=== PATIENT | male | born 1960 | race Caucasian/White ===

== ENCOUNTER → 2017-05-02 | Outpatient (REF) | payer OTHER ==
[~2017-05-02] MED LIST: CIPR500T3 PO; PERCOCET PO
[2017-05-02 13:36] LABS: CALCIUM LEVEL 9.1 MG/DL (8.5-10.1); CREATININE FOR GFR 1.35 MG/DL (0.70-1.30); GLOMERULAR FILTRATION RATE 57.8 (>56); MAGNESIUM LEVEL 2.3 MG/DL (1.8-2.4); PHOSPHORUS LEVEL 1.8 MG/DL (2.5-4.9); POTASSIUM SERUM 3.8 MEQ/L (3.5-5.1)
== END ==
LOC: M LABDRAW1 11:46
PROVIDERS: ATTEND Internal Medicine Cardiovascular Disease
DX: I10 Essential (primary) hypertension (principal)

== ENCOUNTER → 2017-06-03 | Outpatient (REF) | payer OTHER ==
[2017-06-03 16:32] LABS: ALBUMIN 3.5 GM/DL (3.2-5.2); ANION GAP 7 MEQ/L (8-16); BLOOD UREA NITROGEN 15 MG/DL (7-18); CALCIUM LEVEL 8.8 MG/DL (8.5-10.1); CARBON DIOXIDE LEVEL 24 MEQ/L (21-32); CHLORIDE LEVEL 105 MEQ/L (98-107); CREATININE FOR GFR 1.21 MG/DL (0.70-1.30); GLOMERULAR FILTRATION RATE > 60.0 (>56); GLUCOSE, FASTING 148 MG/DL (70-105); POTASSIUM SERUM 3.6 MEQ/L (3.5-5.1); SODIUM LEVEL 136 MEQ/L (136-145)
== END ==
LOC: M LABDRAW1 15:43
PROVIDERS: ATTEND Internal Medicine Cardiovascular Disease
DX: I10 Essential (primary) hypertension (principal)

== ENCOUNTER → 2017-12-20 | Outpatient (CLI) | payer OTHER | LOC: M WUC 14:25 | DX: M79.671 Pain in right foot (principal) | CPT/HCPCS: 73630 ==

== ENCOUNTER → 2018-03-31 | Outpatient (REF) | payer OTHER ==
[2018-03-31 13:22] LABS: ALBUMIN 3.9 GM/DL (3.2-5.2); ANION GAP 7 MEQ/L (8-16); BLOOD UREA NITROGEN 25 MG/DL (7-18); CARBON DIOXIDE LEVEL 28 MEQ/L (21-32); CHLORIDE LEVEL 106 MEQ/L (98-107); CREATININE FOR GFR 1.17 MG/DL (0.70-1.30); GLOMERULAR FILTRATION RATE > 60.0 (>56); GLUCOSE, FASTING 85 MG/DL (70-100); PHOSPHORUS LEVEL 2.5 MG/DL (2.5-4.9); POTASSIUM SERUM 3.7 MEQ/L (3.5-5.1); SODIUM LEVEL 141 MEQ/L (136-145); TROPONIN I < 0.02 NG/ML (< 0.10)
== END ==
LOC: M LABDRAW1 10:29
DX: R07.2 Precordial pain (principal)
CPT/HCPCS: 80069

== ENCOUNTER → 2018-10-01 | Outpatient (REF) | payer OTHER ==
[2018-10-01 12:40] LABS: HEMATOCRIT 44.4 % (42.0-52.0); HEMOGLOBIN 15.2 g/dl (13.5-17.5); MEAN CORPUSCULAR HEMOGLOBIN 31.9 pg (27.0-33.0); MEAN CORPUSCULAR HGB CONC 34.2 g/dl (32.0-36.5); MEAN CORPUSCULAR VOLUME 93.1 fl (80.0-96.0); PLATELET COUNT, AUTOMATED 203 10^3/uL (150-450); RED BLOOD COUNT 4.77 10^6/uL (4.30-6.10); RED CELL DISTRIBUTION WIDTH 12.1 % (11.5-14.5); WHITE BLOOD COUNT 3.5 10^3/uL (4.0-10.0)
[2018-10-01 12:45] LABS: ALBUMIN 3.8 GM/DL (3.2-5.2); ALBUMIN/GLOBULIN RATIO 1.15 (1.00-1.93); ALKALINE PHOSPHATASE 117 U/L (45-117); ALT/SGPT 34 U/L (12-78); ANION GAP 7 MEQ/L (8-16); AST/SGOT 14 U/L (7-37); BILIRUBIN,TOTAL 0.8 MG/DL (0.2-1.0); BLOOD UREA NITROGEN 26 MG/DL (7-18); CALCIUM LEVEL 8.8 MG/DL (8.5-10.1); CARBON DIOXIDE LEVEL 29 MEQ/L (21-32); CHLORIDE LEVEL 104 MEQ/L (98-107); CHOLESTEROL LEVEL 129 MG/DL (<200); CHOLESTEROL RISK RATIO 2.931 (<5); CREATININE FOR GFR 1.33 MG/DL (0.70-1.30); GLOMERULAR FILTRATION RATE 58.6 (>56); GLUCOSE, FASTING 101 MG/DL (70-100); HDL CHOLESTEROL 44 MG/DL (>40); LDL CHOLESTEROL 67 MG/DL (<100); NON-HDL-C 85 MG/DL; SODIUM LEVEL 140 MEQ/L (136-145); TOTAL PROTEIN 7.1 GM/DL (6.4-8.2); TRIGLYCERIDES LEVEL 89 MG/DL (<150)
== END ==
LOC: M LABDRAW1 11:50
DX: I10 Essential (primary) hypertension (principal)
CPT/HCPCS: 80053

== ENCOUNTER 2018-10-06 05:13 | Inpatient (IN) | payer OTHER ==
[2018-10-06 05:47] LABS: BASO % 0.2 % (0.0-1.0); EOS % 0.5 % (0.0-3.0); HEMATOCRIT 44.6 % (42.0-52.0); HEMOGLOBIN 15.3 g/dl (13.5-17.5); IMMATURE GRANULOCYTE % 0.3 % (0-3.0); LYMPH # 0.9 10^3/uL (1.5-4.5); LYMPH % 13.1 % (24.0-44.0); MEAN CORPUSCULAR HEMOGLOBIN 31.8 pg (27.0-33.0); MEAN CORPUSCULAR HGB CONC 34.3 g/dl (32.0-36.5); MEAN CORPUSCULAR VOLUME 92.7 fl (80.0-96.0); MONO # 0.3 10^3/uL (0.0-0.8); MONO % 4.9 % (0.0-5.0); NEUTROPHILS # 5.3 10^3/uL (1.8-7.7); PLATELET COUNT, AUTOMATED 195 10^3/uL (150-450); RED BLOOD COUNT 4.81 10^6/uL (4.30-6.10); RED CELL DISTRIBUTION WIDTH 12.1 % (11.5-14.5); WHITE BLOOD COUNT 6.5 10^3/uL (4.0-10.0)
[2018-10-06 06:08] LABS: ANION GAP 8 MEQ/L (8-16); BLOOD UREA NITROGEN 21 MG/DL (7-18); CALCIUM LEVEL 9.5 MG/DL (8.5-10.1); CARBON DIOXIDE LEVEL 29 MEQ/L (21-32); CHLORIDE LEVEL 102 MEQ/L (98-107); CPK CREATINE PHOSPHOKINASE 100 U/L (39-308); CREATININE FOR GFR 1.25 MG/DL (0.70-1.30); GLOMERULAR FILTRATION RATE > 60.0 (>56); GLUCOSE, FASTING 143 MG/DL (70-100); POTASSIUM SERUM 3.6 MEQ/L (3.5-5.1); SODIUM LEVEL 139 MEQ/L (136-145); TROPONIN I < 0.02 NG/ML (< 0.10)
[2018-10-06] MEDS ORDERED: ISOVUE-370 76% 100ML VIAL (Q9967) As Ordered (07:06)
[2018-10-06] MEDS: ONDANSETRON 4MG/2ML VIAL (J2405) IV (07:34)
[2018-10-06] MEDS: NS 1,000 ML IV ×2 (07:34→09:42)
[2018-10-06] MEDS: MORPHINE 2 MG/ML 1ML SYRINGE (J2270) IV ×4 (07:35→09:42)
[2018-10-06 07:36] LABS: ALBUMIN/GLOBULIN RATIO 1.18 (1.00-1.93); ALKALINE PHOSPHATASE 115 U/L (45-117); ALT/SGPT 30 U/L (12-78); AST/SGOT 17 U/L (7-37); BILIRUBIN,DIRECT 0.2 MG/DL (0.0-0.2); BILIRUBIN,TOTAL 0.5 MG/DL (0.2-1.0); LIPASE 128 U/L (73-393); TOTAL PROTEIN 7.4 GM/DL (6.4-8.2)
[2018-10-06 08:29] LABS: LACTIC ACID SEPSIS PROTOCOL 2.8 MMOL/L (0.4-2.0)
[2018-10-06 08:36] LABS: CPK CREATINE PHOSPHOKINASE 145 U/L (39-308); MB/CK RELATIVE INDEX 1.17 (< OR =4); TROPONIN I < 0.02 NG/ML (< 0.10)
[2018-10-06] MEDS: SENOKOT S TAB PO ×2 (09:00→21:05)
[2018-10-06] MEDS: GI COCKTAIL 50ML BTL(HYOSCYAMINE/MAALOX/LIDOCAINE VISCOUS)(1:3:1) PO (09:14)
[2018-10-06] MEDS ORDERED: NORCO, ANEXSIA 5/325MG TABLET (HYDROcodone/ACETAMINOPHEN) PO (11:15)
[2018-10-06] MEDS ORDERED: ONDANSETRON 4MG/2ML VIAL (J2405) IV (11:15)
[2018-10-06] MEDS: KETOROLAC 30 MG/ML VIAL (J1885) IV (11:24)
[2018-10-06 12:09] LABS: BASO % 0.1 % (0.0-1.0); HEMATOCRIT 40.6 % (42.0-52.0); HEMOGLOBIN 14.2 g/dl (13.5-17.5); IMMATURE GRANULOCYTE % 0.3 % (0-3.0); LYMPH # 0.5 10^3/uL (1.5-4.5); MEAN CORPUSCULAR HEMOGLOBIN 31.8 pg (27.0-33.0); MEAN CORPUSCULAR VOLUME 90.8 fl (80.0-96.0); MONO # 0.5 10^3/uL (0.0-0.8); MONO % 5.4 % (0.0-5.0); NEUTROPHILS # 8.3 10^3/uL (1.8-7.7); NEUTROPHILS % 89.2 % (36.0-66.0); PLATELET COUNT, AUTOMATED 181 10^3/uL (150-450); RED BLOOD COUNT 4.47 10^6/uL (4.30-6.10); RED CELL DISTRIBUTION WIDTH 12.1 % (11.5-14.5); WHITE BLOOD COUNT 9.3 10^3/uL (4.0-10.0)
[2018-10-06 12:43] LABS: ALBUMIN 3.4 GM/DL (3.2-5.2); ALKALINE PHOSPHATASE 93 U/L (45-117); ALT/SGPT 24 U/L (12-78); ANION GAP 7 MEQ/L (8-16); AST/SGOT 16 U/L (7-37); BILIRUBIN,DIRECT 0.2 MG/DL (0.0-0.2); BILIRUBIN,TOTAL 0.6 MG/DL (0.2-1.0); BLOOD UREA NITROGEN 15 MG/DL (7-18); CALCIUM LEVEL 8.6 MG/DL (8.5-10.1); CARBON DIOXIDE LEVEL 26 MEQ/L (21-32); CHLORIDE LEVEL 103 MEQ/L (98-107); CREATININE FOR GFR 0.95 MG/DL (0.70-1.30); GLOMERULAR FILTRATION RATE > 60.0 (>56); GLUCOSE, FASTING 130 MG/DL (70-100); LIPASE 114 U/L (73-393); POTASSIUM SERUM 3.8 MEQ/L (3.5-5.1); SODIUM LEVEL 136 MEQ/L (136-145); TOTAL PROTEIN 6.5 GM/DL (6.4-8.2)
[2018-10-06] MEDS: PANTOPRAZOLE 40MG INJ (PROTONIX) (C9113) IV (13:07)
[2018-10-06] MEDS: ASPIRIN 81 MG ENTERIC TAB PO (13:07)
[2018-10-06] MEDS: LR 1,000 ML IV ×2 (13:08→23:30)
[2018-10-06] MEDS: AMPICILLIN SOD/SULBACTAM SOD 3 GM in D5W MINI-BAG PLUS 100 ML IV ×2 (13:09→18:22)
[2018-10-06] MEDS: ATORVASTATIN 20 MG TAB PO (21:04)
[2018-10-06] MEDS: ENOXAPARIN 40 MG/0.4 ML SYRINGE (J1650) SC (21:04)
[2018-10-06] MEDS: ACETAMINOPHEN TAB 650MG DOSE (2X325MG) PO (21:05)
[2018-10-06] MEDS: NORCO, ANEXSIA 5/325MG TABLET (HYDROcodone/ACETAMINOPHEN) PO (23:29)
[2018-10-07] MEDS: AMPICILLIN SOD/SULBACTAM SOD 3 GM in D5W MINI-BAG PLUS 100 ML IV ×4 (00:28→19:19)
[2018-10-07] MEDS: LR 1,000 ML IV ×3 (03:04→17:29)
[2018-10-07 06:22] LABS: BASO % 0.2 % (0.0-1.0); EOS # 0.1 10^3/uL (0.0-0.50); EOS % 0.8 % (0.0-3.0); HEMATOCRIT 37.5 % (42.0-52.0); HEMOGLOBIN 12.9 g/dl (13.5-17.5); IMMATURE GRANULOCYTE % 0.4 % (0-3.0); LYMPH # 0.9 10^3/uL (1.5-4.5); LYMPH % 9.5 % (24.0-44.0); MEAN CORPUSCULAR HEMOGLOBIN 31.9 pg (27.0-33.0); MEAN CORPUSCULAR HGB CONC 34.4 g/dl (32.0-36.5); MEAN CORPUSCULAR VOLUME 92.8 fl (80.0-96.0); MONO # 0.8 10^3/uL (0.0-0.8); MONO % 9.1 % (0.0-5.0); NEUTROPHILS # 7.3 10^3/uL (1.8-7.7); PLATELET COUNT, AUTOMATED 149 10^3/uL (150-450); RED BLOOD COUNT 4.04 10^6/uL (4.30-6.10); RED CELL DISTRIBUTION WIDTH 12.5 % (11.5-14.5); WHITE BLOOD COUNT 9.1 10^3/uL (4.0-10.0)
[2018-10-07 06:41] LABS: ALBUMIN 2.7 GM/DL (3.2-5.2); ALBUMIN/GLOBULIN RATIO 0.93 (1.00-1.93); ALKALINE PHOSPHATASE 74 U/L (45-117); ALT/SGPT 21 U/L (12-78); ANION GAP 6 MEQ/L (8-16); AST/SGOT 11 U/L (7-37); BILIRUBIN,TOTAL 0.9 MG/DL (0.2-1.0); BLOOD UREA NITROGEN 14 MG/DL (7-18); CARBON DIOXIDE LEVEL 29 MEQ/L (21-32); CHLORIDE LEVEL 106 MEQ/L (98-107); CREATININE FOR GFR 1.14 MG/DL (0.70-1.30); GLOMERULAR FILTRATION RATE > 60.0 (>56); GLUCOSE, FASTING 106 MG/DL (70-100); LIPASE 88 U/L (73-393); POTASSIUM SERUM 3.6 MEQ/L (3.5-5.1); SODIUM LEVEL 141 MEQ/L (136-145); TOTAL PROTEIN 5.6 GM/DL (6.4-8.2)
[2018-10-07] MEDS: SENOKOT S TAB PO ×2 (09:00→20:30)
[2018-10-07] MEDS: ASPIRIN 81 MG ENTERIC TAB PO (09:16)
[2018-10-07] MEDS: PANTOPRAZOLE 40MG INJ (PROTONIX) (C9113) IV (09:16)
[2018-10-07] MEDS: SPIRONOLACTONE 12.5MG PER 1/2 TABLET PO (11:22)
[2018-10-07] MEDS: ACETAMINOPHEN TAB 650MG DOSE (2X325MG) PO (14:30)
[2018-10-07] MEDS: ENOXAPARIN 40 MG/0.4 ML SYRINGE (J1650) SC (20:30)
[2018-10-07] MEDS: ATORVASTATIN 20 MG TAB PO (20:31)
[2018-10-08] MEDS: AMPICILLIN SOD/SULBACTAM SOD 3 GM in D5W MINI-BAG PLUS 100 ML IV ×4 (00:13→20:05)
[2018-10-08] MEDS: LR 1,000 ML IV ×5 (02:32→23:45)
[2018-10-08 06:35] LABS: BASO % 0.1 % (0.0-1.0); EOS # 0.1 10^3/uL (0.0-0.50); EOS % 0.9 % (0.0-3.0); HEMATOCRIT 35.2 % (42.0-52.0); IMMATURE GRANULOCYTE % 0.5 % (0-3.0); LYMPH % 10.9 % (24.0-44.0); MEAN CORPUSCULAR HEMOGLOBIN 31.4 pg (27.0-33.0); MEAN CORPUSCULAR HGB CONC 34.1 g/dl (32.0-36.5); MEAN CORPUSCULAR VOLUME 92.1 fl (80.0-96.0); MONO # 0.8 10^3/uL (0.0-0.8); NEUTROPHILS # 6.9 10^3/uL (1.8-7.7); NEUTROPHILS % 78.6 % (36.0-66.0); PLATELET COUNT, AUTOMATED 143 10^3/uL (150-450); RED BLOOD COUNT 3.82 10^6/uL (4.30-6.10); RED CELL DISTRIBUTION WIDTH 12.3 % (11.5-14.5); WHITE BLOOD COUNT 8.7 10^3/uL (4.0-10.0)
[2018-10-08 07:08] LABS: ALBUMIN 2.6 GM/DL (3.2-5.2); ALBUMIN/GLOBULIN RATIO 0.84 (1.00-1.93); ALKALINE PHOSPHATASE 68 U/L (45-117); ALT/SGPT 14 U/L (12-78); ANION GAP 8 MEQ/L (8-16); AST/SGOT 11 U/L (7-37); BILIRUBIN,TOTAL 0.9 MG/DL (0.2-1.0); BLOOD UREA NITROGEN 9 MG/DL (7-18); CARBON DIOXIDE LEVEL 27 MEQ/L (21-32); CHLORIDE LEVEL 107 MEQ/L (98-107); CREATININE FOR GFR 0.95 MG/DL (0.70-1.30); GLOMERULAR FILTRATION RATE > 60.0 (>56); GLUCOSE, FASTING 92 MG/DL (70-100); POTASSIUM SERUM 3.3 MEQ/L (3.5-5.1); SODIUM LEVEL 142 MEQ/L (136-145); TOTAL PROTEIN 5.7 GM/DL (6.4-8.2)
[2018-10-08] MEDS: ASPIRIN 81 MG ENTERIC TAB PO (08:07)
[2018-10-08] MEDS: CHLORTHALIDONE 12.5MG PER 1/2 TABLET PO (08:07)
[2018-10-08] MEDS: SENOKOT S TAB PO ×2 (09:00→21:54)
[2018-10-08] MEDS: SPIRONOLACTONE 12.5MG PER 1/2 TABLET PO (09:00)
[2018-10-08] MEDS: PANTOPRAZOLE 40MG INJ (PROTONIX) (C9113) IV (10:29)
[2018-10-08] MEDS ORDERED: ROCURONIUM BROMIDE 50 MG/5 ML VIAL As Ordered ×2 (16:48→18:19)
[2018-10-08] MEDS ORDERED: PROPOFOL 200 MG/20 ML VIAL As Ordered (16:48)
[2018-10-08] MEDS ORDERED: fentaNYL 250 MCG/5 ML INJECTION (J3010) As Ordered (16:48)
[2018-10-08] MEDS ORDERED: MIDAZOLAM INJ 2 MG/2 ML VIAL (J2250) As Ordered (16:48)
[2018-10-08] MEDS ORDERED: dexameTHASONE 4 MG/ML 1ML VIAL (J1100) As Ordered (16:48)
[2018-10-08] MEDS ORDERED: LIDOCAINE 2% INJ 100 MG/5 ML SDV (FOR ANES.) As Ordered (16:48)
[2018-10-08] MEDS: LIDOCAINE 1% SDV INJ 30 ML VIAL As Ordered (16:59)
[2018-10-08] MEDS: BUPIVACAINE HCL 0.25% 30 ML VIAL As Ordered ×2 (16:59→20:31)
[2018-10-08] MEDS ORDERED: ONDANSETRON 4MG/2ML VIAL (J2405) As Ordered (17:36)
[2018-10-08] MEDS ORDERED: KETOROLAC 60 MG/2 ML VIAL (J1885) As Ordered (17:36)
[2018-10-08] MEDS ORDERED: DESFLURANE 240 ML INHALANT As Ordered (17:58)
[2018-10-08] MEDS: CONRAY-60 60% 50ML VIAL (Q9961) As Ordered (18:52)
[2018-10-08] MEDS: GLUCAGON FOR INJ 1 MG VIAL (J1610) As Ordered ×2 (19:05→20:11)
[2018-10-08] MEDS: UNASYN 1.5 GM VIAL As Ordered (20:04)
[2018-10-08] MEDS ORDERED: SUGAMMADEX SODIUM 500 MG/5 ML VIAL (BRIDION) As Ordered (20:22)
[2018-10-08] MEDS: BUPIVACAINE LIPOSOME/PF 1.3% 20ML VIAL (13.3MG/ML)(EXPAREL)(C9290 PER1MG) As Ordered (20:40)
[2018-10-08] MEDS ORDERED: NORCO, ANEXSIA 5/325MG TABLET (HYDROcodone/ACETAMINOPHEN) PO ×2 (21:15→23:45)
[2018-10-08] MEDS ORDERED: ONDANSETRON 4MG/2ML VIAL (J2405) IV ×2 (21:15→23:45)
[2018-10-08] MEDS ORDERED: fentaNYL 100 MCG/2 ML INJECTION (J3010) IV ×2 (21:15→23:45)
[2018-10-08] MEDS: ENOXAPARIN 40 MG/0.4 ML SYRINGE (J1650) SC (21:54)
[2018-10-08] MEDS: ATORVASTATIN 20 MG TAB PO (21:54)
[2018-10-09] MEDS: AMPICILLIN SOD/SULBACTAM SOD 3 GM in D5W MINI-BAG PLUS 100 ML IV ×4 (01:09→18:32)
[2018-10-09 06:00] LABS: BASO % 0.1 % (0.0-1.0); HEMATOCRIT 32.4 % (42.0-52.0); HEMOGLOBIN 11.1 g/dl (13.5-17.5); IMMATURE GRANULOCYTE % 0.6 % (0-3.0); LYMPH # 0.5 10^3/uL (1.5-4.5); LYMPH % 7.1 % (24.0-44.0); MEAN CORPUSCULAR HEMOGLOBIN 31.9 pg (27.0-33.0); MEAN CORPUSCULAR HGB CONC 34.3 g/dl (32.0-36.5); MEAN CORPUSCULAR VOLUME 93.1 fl (80.0-96.0); MONO # 0.5 10^3/uL (0.0-0.8); MONO % 7.8 % (0.0-5.0); NEUTROPHILS # 5.8 10^3/uL (1.8-7.7); NEUTROPHILS % 84.4 % (36.0-66.0); PLATELET COUNT, AUTOMATED 141 10^3/uL (150-450); RED BLOOD COUNT 3.48 10^6/uL (4.30-6.10); RED CELL DISTRIBUTION WIDTH 12.2 % (11.5-14.5); WHITE BLOOD COUNT 6.9 10^3/uL (4.0-10.0)
[2018-10-09 06:21] LABS: ALBUMIN 2.3 GM/DL (3.2-5.2); ALKALINE PHOSPHATASE 63 U/L (45-117); ALT/SGPT 59 U/L (12-78); ANION GAP 7 MEQ/L (8-16); AST/SGOT 50 U/L (7-37); BILIRUBIN,TOTAL 0.6 MG/DL (0.2-1.0); CARBON DIOXIDE LEVEL 28 MEQ/L (21-32); CHLORIDE LEVEL 106 MEQ/L (98-107); CREATININE FOR GFR 0.96 MG/DL (0.70-1.30); GLOMERULAR FILTRATION RATE > 60.0 (>56); GLUCOSE, FASTING 115 MG/DL (70-100); POTASSIUM SERUM 3.7 MEQ/L (3.5-5.1); SODIUM LEVEL 141 MEQ/L (136-145); TOTAL PROTEIN 5.6 GM/DL (6.4-8.2)
[2018-10-09 06:22] LABS: BLOOD UREA NITROGEN 15 MG/DL (7-18)
[2018-10-09] MEDS: LR 1,000 ML IV ×2 (06:31→14:39)
[2018-10-09] MEDS: PANTOPRAZOLE 40MG INJ (PROTONIX) (C9113) IV (08:04)
[2018-10-09] MEDS: SPIRONOLACTONE 12.5MG PER 1/2 TABLET PO (08:44)
[2018-10-09] MEDS: SENOKOT S TAB PO ×2 (08:45→21:00)
[2018-10-09] MEDS: ASPIRIN 81 MG ENTERIC TAB PO (08:45)
[2018-10-09] MEDS: KETOROLAC 30 MG/ML VIAL (J1885) IV (13:37)
[2018-10-09] MEDS: ENOXAPARIN 40 MG/0.4 ML SYRINGE (J1650) SC (21:02)
[2018-10-09] MEDS: ATORVASTATIN 20 MG TAB PO (21:02)
[2018-10-10] MEDS: AMPICILLIN SOD/SULBACTAM SOD 3 GM in D5W MINI-BAG PLUS 100 ML IV ×4 (01:06→18:13)
[2018-10-10 07:37] LABS: BASO % 0.3 % (0.0-1.0); EOS # 0.1 10^3/uL (0.0-0.50); EOS % 1.9 % (0.0-3.0); HEMATOCRIT 36.4 % (42.0-52.0); HEMOGLOBIN 12.4 g/dl (13.5-17.5); IMMATURE GRANULOCYTE % 0.3 % (0-3.0); LYMPH # 1.5 10^3/uL (1.5-4.5); MEAN CORPUSCULAR HEMOGLOBIN 31.9 pg (27.0-33.0); MEAN CORPUSCULAR HGB CONC 34.1 g/dl (32.0-36.5); MEAN CORPUSCULAR VOLUME 93.6 fl (80.0-96.0); MONO # 0.5 10^3/uL (0.0-0.8); NEUTROPHILS # 3.6 10^3/uL (1.8-7.7); NEUTROPHILS % 62.5 % (36.0-66.0); PLATELET COUNT, AUTOMATED 170 10^3/uL (150-450); RED BLOOD COUNT 3.89 10^6/uL (4.30-6.10); RED CELL DISTRIBUTION WIDTH 12.1 % (11.5-14.5); WHITE BLOOD COUNT 5.8 10^3/uL (4.0-10.0)
[2018-10-10 08:30] LABS: ALBUMIN 2.5 GM/DL (3.2-5.2); ALBUMIN/GLOBULIN RATIO 0.68 (1.00-1.93); ALKALINE PHOSPHATASE 72 U/L (45-117); ALT/SGPT 59 U/L (12-78); ANION GAP 10 MEQ/L (8-16); AST/SGOT 40 U/L (7-37); BILIRUBIN,TOTAL 0.3 MG/DL (0.2-1.0); BLOOD UREA NITROGEN 23 MG/DL (7-18); CALCIUM LEVEL 8.3 MG/DL (8.5-10.1); CARBON DIOXIDE LEVEL 28 MEQ/L (21-32); CHLORIDE LEVEL 104 MEQ/L (98-107); GLOMERULAR FILTRATION RATE > 60.0 (>56); GLUCOSE, FASTING 109 MG/DL (70-100); POTASSIUM SERUM 3.7 MEQ/L (3.5-5.1); SODIUM LEVEL 142 MEQ/L (136-145); TOTAL PROTEIN 6.2 GM/DL (6.4-8.2)
[2018-10-10] MEDS: PANTOPRAZOLE 40MG INJ (PROTONIX) (C9113) IV (09:12)
[2018-10-10] MEDS: SPIRONOLACTONE 12.5MG PER 1/2 TABLET PO (09:13)
[2018-10-10] MEDS: SENOKOT S TAB PO ×2 (09:13→20:15)
[2018-10-10] MEDS: MOM 30ML SUSPENSION UDC PO (09:13)
[2018-10-10] MEDS: ASPIRIN 81 MG ENTERIC TAB PO (09:13)
[2018-10-10] MEDS: CHLORTHALIDONE 12.5MG PER 1/2 TABLET PO (09:13)
[2018-10-10] MEDS: ATORVASTATIN 20 MG TAB PO (20:15)
[2018-10-10] MEDS: ENOXAPARIN 40 MG/0.4 ML SYRINGE (J1650) SC (20:15)
[2018-10-11] MEDS: AMPICILLIN SOD/SULBACTAM SOD 3 GM in D5W MINI-BAG PLUS 100 ML IV ×2 (00:31→07:35)
[2018-10-11] MEDS: SPIRONOLACTONE 12.5MG PER 1/2 TABLET PO (07:30)
[2018-10-11] MEDS: SENOKOT S TAB PO ×2 (09:00→09:09)
[2018-10-11] MEDS: ASPIRIN 81 MG ENTERIC TAB PO (09:09)
[2018-10-11] MEDS: PANTOPRAZOLE 40MG INJ (PROTONIX) (C9113) IV (09:09)
== END 2018-10-11 11:13 | disposition home or self-care (01) | DRG 262 ==
LOC: M ED 05:13 → M ED INP 11:04 → M MSPAV 12:55
PROC: 0FT40ZZ Resection of Gallbladder, Open Approach (ICD-10-PCS; principal; 2018-10-08 15:30)
DX: K81.0 Acute cholecystitis (principal); I36.0 Nonrheumatic tricuspid (valve) stenosis; I10 Essential (primary) hypertension; Z53.31 Laparoscopic surgical procedure converted to open procedure; K21.9 Gastro-esophageal reflux disease without esophagitis; Z79.82 Long term (current) use of aspirin; Z79.899 Other long term (current) drug therapy; E78.5 Hyperlipidemia, unspecified; M19.90 Unspecified osteoarthritis, unspecified site

== ENCOUNTER → 2019-07-28 | Outpatient (CLI) | payer OTHER ==
[~2019-07-28] MED LIST changes: +ASPI81TA85 PO; +ATOR40TA75 PO; +CHLO125TA; +CHLO125TA PO; +PANT40TA3 PO; +SPIR-10 PO
[2019-07-28 10:43] LABS: HEMATOCRIT 42.3 % (42.0-52.0); HEMOGLOBIN 14.7 g/dl (13.5-17.5); MEAN CORPUSCULAR HEMOGLOBIN 31.9 pg (27.0-33.0); MEAN CORPUSCULAR HGB CONC 34.8 g/dl (32.0-36.5); MEAN CORPUSCULAR VOLUME 91.8 fl (80.0-96.0); PLATELET COUNT, AUTOMATED 157 10^3/uL (150-450); RED BLOOD COUNT 4.61 10^6/uL (4.30-6.10); WHITE BLOOD COUNT 4.4 10^3/uL (4.0-10.0)
[2019-07-28 11:00] LABS: INR 0.97; PROTHROMBIN TIME 12.6 SECONDS (11.8-14.0)
[2019-07-28 11:05] LABS: ALBUMIN 3.7 GM/DL (3.2-5.2); ALT/SGPT 24 U/L (12-78); BILIRUBIN,TOTAL 0.5 MG/DL (0.2-1.0); BLOOD UREA NITROGEN 21 MG/DL (7-18); CALCIUM LEVEL 9.1 MG/DL (8.8-10.2); CARBON DIOXIDE LEVEL 27 MEQ/L (21-32); CHLORIDE LEVEL 106 MEQ/L (98-107); CREATININE FOR GFR 1.08 MG/DL (0.70-1.30); GLOMERULAR FILTRATION RATE > 60.0 (>49); GLUCOSE, FASTING 91 MG/DL (70-100); POTASSIUM SERUM 3.9 MEQ/L (3.5-5.1); SODIUM LEVEL 141 MEQ/L (136-145); TOTAL PROTEIN 6.6 GM/DL (6.4-8.2)
[2019-07-28 11:26] LABS: ERYTHROCYTE SEDIMENTATION RATE 18 mm/hr (0-20)
--- NOTE | 2019-07-29 02:57 | REP ---
Clinical: Preoperative assessment . Comparison: 10/06/2018 . Technique: PA and lateral. Findings: The mediastinum and cardiac silhouette are normal. The lung kelly are clear and without acute consolidation, effusion, or pneumothorax. The skeletal structures are intact and normal. Impression: 1. No acute cardiopulmonary process. Electronically Signed by Michael Sawyer MD 07/29/2019 02:49 A
--- NOTE | 2019-07-29 10:14 | ECGEPIP ---
[facility] Test Date: 2019-07-28 Pat Name: CARMEN ROCA Department: Room: - Gender: Male Emergency Room Tech: ROBERT : 1960 Requested By: Jeremiah Hernandes Order Number: [id number] Reading MD: Jeremiah Nelson Measurements Intervals [place] Rate: 52 P: 28 OR: 152 QRS: -20 QRSD: 93 T: 12 QT: 397 QTc: 369 Interpretive Statements SINUS BRADYCARDIA Normalized QTc from tracing done 10-06-18 Electronically Signed on 07-29-2019 10:13:55 EDT by Jeremiah Nelson
== END ==
LOC: M LAB 09:47
PROVIDERS: ATTEND Orthopaedic Surgery
DX: Z01.818 Encounter for other preprocedural examination (principal); M16.12 Unilateral primary osteoarthritis, left hip; R00.1 Bradycardia, unspecified

== ENCOUNTER 2019-08-19 05:47 | Inpatient (IN) | payer OTHER ==
[2019-08-19] VITALS (8 sets, daily range): BP systolic 104–136; BP diastolic 59–78
[~2019-08-19] VITALS: Ht 162.6 cm; Wt 81.1 kg
[2019-08-19] MEDS ORDERED: ceFAZolin SOD 2 GM in IV 1 EA IV ONE (06:00)
[2019-08-19] MEDS ORDERED: LR 1,000 ML IV ONE (06:00)
[2019-08-19] MEDS ORDERED: LIDOCAINE 1% MDV 20ML VIAL SQ PRN (06:00)
--- NOTE | 2019-08-19 07:47 | IPN ---
DATE: 08/19/2019 Patient seen and examined. He wishes to go ahead with a left total hip arthroplasty. We are planning on using a [place] stem. I talked to him about the weightbearing options and decided that we would go ahead with likely a ceramic ball on poly. I think that is a good weightbearing choice for somebody of his age. Other weightbearing surfaces discussed. He understands the nature of procedure, the risks of bleeding, infection, damage to nerves, vessels, persistent pain, wear loosening, dislocation, leg length inequality, blood clots, medical problems. Preop clearance was obtained. Will plan on proceeding with a left total hip arthroplasty.
[2019-08-19] MEDS ORDERED: LIDOCAINE 2% INJ 100 MG/5 ML SDV (FOR ANES.) As Ordered ONE (08:09)
[2019-08-19] MEDS ORDERED: fentaNYL 100 MCG/2 ML INJECTION (J3010) As Ordered ONE (08:09)
[2019-08-19] MEDS ORDERED: PROPOFOL 500 MG/50 ML VIAL As Ordered ONE (08:09)
[2019-08-19] MEDS ORDERED: MIDAZOLAM INJ 2 MG/2 ML VIAL (J2250) As Ordered ONE (08:09)
[2019-08-19] MEDS ORDERED: ONDANSETRON 4MG/2ML VIAL (J2405) As Ordered ONE (08:09)
[2019-08-19] MEDS ORDERED: ePHEDrine SULFATE 25 MG/5 ML(5MG/ML) SYRINGE As Ordered ONE (08:09)
[2019-08-19] MEDS ORDERED: METOCLOPRAMIDE INJ 10MG/2ML VIAL (J2765) IV PRN (09:00)
[2019-08-19] MEDS ORDERED: ACETAMINOPHEN TAB 650MG DOSE (2X325MG) PO PRN (09:00)
[2019-08-19] MEDS ORDERED: ONDANSETRON 4MG/2ML VIAL (J2405) IV PRN ×2 (09:00)
[2019-08-19] MEDS ORDERED: PERCOCET 5MG/325MG TAB PO PRN ×2 (09:00)
[2019-08-19] MEDS ORDERED: FLEET ENEMA PR PRN (09:00)
[2019-08-19] MEDS ORDERED: MEPERIDINE INJ 25 MG/ML VIAL (J2175) IV PRN (09:00)
[2019-08-19] MEDS ORDERED: MORPHINE 4 MG/ML 1ML VIAL/SYRINGE (J2270) IV PRN (09:00)
[2019-08-19] MEDS ORDERED: LR 1,000 ML IV SCH (09:30)
[2019-08-19] MEDS ORDERED: fentaNYL 100 MCG/2 ML INJECTION (J3010) IV PRN (09:30)
[2019-08-19] MEDS ORDERED: TRANEXAMIC ACID 100 MG/ML 10ML VIAL As Ordered ONE (09:35)
[2019-08-19] MEDS ORDERED: EPINEPHrine INJ 1 MG/ML 1ML AMP As Ordered ONE (09:35)
[2019-08-19] MEDS ORDERED: ceFAZolin 1GM INJ (J0690 PER 500MG) As Ordered ONE (09:35)
[2019-08-19] MEDS ORDERED: BUPIVACAINE LIPOSOME/PF 1.3% 20ML VIAL (13.3MG/ML)(EXPAREL)(C9290 PER1MG) As Ordered ONE (09:35)
--- NOTE | 2019-08-19 10:30 | REP ---
LEFT HIP, TWO VIEWS: Two views of the left hip performed. Total hip prosthesis appears to be in good position. Structures are well aligned. Metallic skin alex are seen laterally. Electronically Signed by Arnulfo Mitchell MD 08/19/2019 06:22 P
[2019-08-19] MEDS: LR 1,000 ML IV SCH ×2 (13:03→20:28)
[2019-08-19] MEDS: MORPHINE 4 MG/ML 1ML VIAL/SYRINGE (J2270) IV PRN ×2 (13:03→16:19)
[2019-08-19] MEDS: PERCOCET 5MG/325MG TAB PO PRN ×2 (13:45→20:28)
--- NOTE | 2019-08-19 14:45 | RO ---
DATE OF PROCEDURE: 08/19/2019 PREOPERATIVE DIAGNOSIS: Left hip osteoarthritis. POSTOPERATIVE DIAGNOSIS: Left hip osteoarthritis, severe. PROCEDURE: Left total hip arthroplasty using a [place] 7 high offset, +8.5 neck, 36 ball, 56 acetabular component with a ceramic head polyethylene liner. SURGEON: Dr. Jeremiah Hernandes. CLEANING MATRON: Mr. Zack Lockhart PA-C ANESTHESIA: Spinal ESTIMATED BLOOD LOSS: 200 mL. COMPLICATIONS: None. INDICATIONS: This is a 59-year-old gentleman who has had gradually worsening left hip pain. He has severe arthritis and large osteophytes noted on the x-ray. He wished to go ahead with surgical treatment having failed conservative management. PROCEDURE: The patient was taken to operating room and placed in the right lateral decubitus position on the [place] positioner. All areas were padded appropriately. The left hip was prepped and draped in usual sterile fashion. I then performed a time-out and created a longitudinal incision over the lateral aspect the hip. Sharp dissection was carried down to the subcutaneous tissue. Incised the fascia esteban and exposed the abductors, which were divided about 40% of which off the anterior aspect of the femur exposing the femoral neck. It was immediately evident the large osteophytes and even some loose pieces anterior to the hip from osteophytes. Eventually, I able to dislocate the hip and then I removed some of the osteophytes with a rongeur for exposure. I used a canal initiating reamer and the canal finding reamer, and lateralizing reamer and then sequentially reamed up to a size 7, which had good purchase in good fit and fill. Neck cut was made about three-quarters of a fingerbreadth up from the lesser trochanter and then we directed our attention to the acetabulum. I then sequentially reamed up to a size 55, which had good bleeding bone in good concentric reaming. I was able to medialized it some in order to get good concentric reaming. He had very large anterior osteophytes which made it very difficult to determine the acetabular component position. I then impacted in the 56 cup and I used the external alignment guide and the appropriate amount of horizontal tilt and anteversion judged based on the alignment guide. This was impacted in place. It was well seated. I then removed osteophytes with an osteotome and mallet and rongeur down to the level of the acetabular component. I then placed the polyethylene, impacted it in place, 36 diameter head. Directed our attention back to the femur. I sequentially broached up to a size 7, which had a good fit and fill. It was very slightly proud on the cut but was very pleased with the way it filled the canal and then did trial reduction with the various different neck lengths and a high offset because I did medialized the acetabulum some and was very pleased with the +8.5 neck length. He had minimal shuck in full extension. I was able to externally rotate him at least 90 degrees in full extension without subluxing the hip. Flexion was beyond 90 degrees with good internal rotation. Again no instability. I then removed the trial components. I had irrigated prior to placement of the acetabulum. I irrigated now prior to placement of the femoral component. Impacted in the size 7 high offset and placed the actual ceramic +8.5, 36 ball. Made sure this was well seated. Reduced the hip with the assistant mechanic's help. Put the hip through range of motion and was very pleased with this. I placed Exparel the deep tissues and TXA in the deep tissues. Repaired the minimus with #1-0 Vicryl suture after final deep irrigation. I then repaired the abductor with #1-0 Vicryl suture. Excellent closure was noted. I irrigated again, closed this fashion with #1=- Vicryl suture running Stratafix, subcu with #2-0 Vicryl and skin with alex. Sterile dressing was applied. The patient was taken to recovery room in stable condition. There were no known complications. The plan will be routine postop. The assistant mechanic was instrumental holding retractors and assisting in reducing and dislocating the hip and assisting in wound closure.
[2019-08-19] MEDS: ceFAZolin SOD 2 GM in IV 1 EA IV SCH ×2 (16:18→23:37)
--- NOTE | 2019-08-19 18:56 | CR.PDOC ---
General Date of Consultation: Aug 19, 2019 Attending Physician: JACOB MARS DO Consultation REASON FOR CONSULTATION/CHIEF COMPLAINT: Physical evaluation and management HISTORY OF PRESENT ILLNESS: Patient is 59 years old male with past medical history of hypertension, osteoarthritis, hyperlipidemia presented hospital for planned left hip replacement due to arthritis. When I saw the patient he was after surgery, he complains of left hip pain alleviated by pain medications. Patient denies fever, chills, nausea, vomiting, diarrhea or dysuria ALLERGIES: Please see below. HOME MEDICATIONS: Please see below. PAST MEDICAL HISTORY: 1. High blood pressure. 3. Hyperlipidemia 4. Gastroesophageal reflux disease. COPD Osteoarthritis PAST SURGICAL HISTORY: cholecystectomy. FAMILY HISTORY: Father: from heart attack Mother: Lung cancer SOCIAL HISTORY: Marital status and/or living arrangements: Children: Employment: Tobacco use: Long history of smoking stopped 2 years ago, ETOH: Socially Illicit drug use: Negative REVIEW OF SYSTEMS: 10 point review of system negative except listed above PHYSICAL EXAMINATION: VITAL SIGNS: Please see below. GENERAL: He is a well-nourished, well-developed in no acute distress, alert male patient. NECK: Supple without adenopathy or jugular venous distension. LUNGS: Clear to auscultation without rales or wheeze throughout. HEART: Regular rate and rhythm. ABDOMEN: Bowel sounds were present. EXTREMITIES: Mild swelling bilaterally +1 pitting edema, dressing over left hip intact LABORATORY DATA: Please see below. ASSESSMENT/PLAN: Patient is 59 years old male with past medical history of hypertension, osteoarthritis, hyperlipidemia presented hospital for planned left hip replacement. Status post left hip replacement Ortho team follows him Continue pain management Hypertension Blood pressures under control Continue home cardioprotective medication GERD Continue PPI Hyperlipidemia Continue statin COPD Not in acute exacerbation Vital Signs/I&O Vital Signs Date Time Temp Pulse Resp B/P (MAP) Pulse Ox O2 Delivery O2 Flow Rate FiO2 08/19/19 16:29 16 08/19/19 16:20 98.2 68 115/59 (77) 94 Allergies Coded Allergies: No Known Allergies (Unverified , 08/19/19) Home Medications Scheduled Aspirin (Aspir 81) 81 Mg Tab, 81 MG PO DAILY, (Reported) Atorvastatin Calcium (Atorvastatin Calcium) 40 Mg Tab, 40 MG PO QHS, (Reported) Chlorthalidone (Chlorthalidone) 12.5 Mg Halftab, 12.5 MG PO 3XW, (Reported) MON,WED,FRI Pantoprazole Sodium (Pantoprazole Sodium) 40 Mg Tab, 40 MG PO DAILY, (Reported) Spironolactone (Spironolactone) 25 Mg Tab, 12.5 MG PO DAILY, (Reported) JACOB MARS DO Aug 19, 2019 18:56
[2019-08-20 02:00] VITALS: BP 110/60
[2019-08-20] MEDS: PERCOCET 5MG/325MG TAB PO PRN ×4 (03:46→22:17)
[2019-08-20 05:59] LABS: MEAN CORPUSCULAR HEMOGLOBIN 32.2 pg (27.0-33.0); MEAN CORPUSCULAR HGB CONC 34.4 g/dl (32.0-36.5); MEAN CORPUSCULAR VOLUME 93.6 fl (80.0-96.0); PLATELET COUNT, AUTOMATED 134 10^3/uL (150-450); RED BLOOD COUNT 3.42 10^6/uL (4.30-6.10); WHITE BLOOD COUNT 5.5 10^3/uL (4.0-10.0)
[2019-08-20 06:00] VITALS: BP 102/52
[2019-08-20] MEDS ORDERED: XARE10TA PO (06:55)
[2019-08-20] MEDS ORDERED: PERC5TAB12 PO (06:55)
[2019-08-20 08:34] LABS: BLOOD UREA NITROGEN 19 MG/DL (7-18); CALCIUM LEVEL 8.2 MG/DL (8.8-10.2); CARBON DIOXIDE LEVEL 29 MEQ/L (21-32); CHLORIDE LEVEL 105 MEQ/L (98-107); CREATININE FOR GFR 1.02 MG/DL (0.70-1.30); GLOMERULAR FILTRATION RATE > 60.0 (>49); GLUCOSE, FASTING 123 MG/DL (70-100); POTASSIUM SERUM 3.8 MEQ/L (3.5-5.1); SODIUM LEVEL 141 MEQ/L (136-145)
[2019-08-20] MEDS: PANTOPRAZOLE 40MG TAB (PROTONIX) PO SCH (08:54)
[2019-08-20] MEDS: MOM 30ML SUSPENSION UDC PO SCH (08:54)
[2019-08-20] MEDS: MIRALAX *UNIT DOSE* 17GM PACKET PO SCH (08:54)
[2019-08-20] MEDS: SPIRONOLACTONE 12.5MG PER 1/2 TABLET PO SCH (08:54)
[2019-08-20] MEDS: SENOKOT S TAB PO SCH ×2 (08:54→22:17)
[2019-08-20] MEDS: ASPIRIN 81 MG ENTERIC TAB PO SCH (08:54)
[2019-08-20 10:00] VITALS: BP 128/69
--- NOTE | 2019-08-20 11:20 | IPNPDOC ---
Text Note Date of Service The patient was seen on 08/20/19. NOTE Subjective: Patient developed one episode of diaphoresis in the morning. He denied any chest pain, dizziness or problems with balance. Patient denies fever, chills, nausea, vomiting, palpitations or shortness of breath Objective:VITAL SIGNS: Please see below. GENERAL: He is a well-nourished, well-developed in no acute distress, alert male patient. NECK: Supple without adenopathy or jugular venous distension. LUNGS: Clear to auscultation without rales or wheeze throughout. HEART: Regular rate and rhythm. ABDOMEN: Bowel sounds were present. EXTREMITIES: Mild swelling bilaterally +1 pitting edema, dressing over left hip intact LABORATORY DATA: Please see below. ASSESSMENT/PLAN: Patient is 59 years old male with past medical history of hypertension, osteoarthritis, hyperlipidemia presented hospital for planned left hip replacement. Diaphoresis Resolved in a few minutes Most likely secondary to vasovagal reflex. We will check orthostatic vital signs EKG Status post left hip replacement Ortho team follows him Continue pain management Hypertension Blood pressures under control Continue home cardioprotective medication GERD Continue PPI Hyperlipidemia Continue statin COPD Not in acute exacerbation VS,Fishbone, I+O VS, Fishbone, I+O Laboratory Tests 08/20/19 05:42 Calcium Level 8.2 L 08/20/19 05:46 Red Blood Count 3.42 L, Mean Corpuscular Volume 93.6, Mean Corpuscular Hemo globin 32.2, Mean Corpuscular Hemoglobin Concent 34.4, Red Cell Distribution Width 12.2 Vital Signs Date Time Temp Pulse Resp B/P (MAP) Pulse Ox O2 Delivery O2 Flow Rate FiO2 08/20/19 10:00 98.2 68 20 128/69 (88) 97 I&O- Last 24 Hours up to 6 AM 08/20/19 06:00 Intake Total 3425 ml Output Total 1145 ml Balance 2280 ml JACOB MARS DO Aug 20, 2019 11:20
[2019-08-20 14:00] VITALS: BP 117/60
[2019-08-20 18:00] VITALS: BP 115/62
[2019-08-20] MEDS ORDERED: RIVAROXABAN 10 MG TAB (XARELTO) PO SCH (18:00)
[2019-08-20] MEDS ORDERED: ATORVASTATIN 20 MG TAB PO SCH (21:00)
[2019-08-20 21:43] VITALS: BP 109/58
[2019-08-21 02:08] VITALS: BP 119/70
[2019-08-21 06:24] VITALS: BP 118/67
[2019-08-21 06:32] LABS: HEMATOCRIT 30.1 % (42.0-52.0); HEMOGLOBIN 10.3 g/dl (13.5-17.5); MEAN CORPUSCULAR HEMOGLOBIN 31.9 pg (27.0-33.0); MEAN CORPUSCULAR HGB CONC 34.2 g/dl (32.0-36.5); MEAN CORPUSCULAR VOLUME 93.2 fl (80.0-96.0); PLATELET COUNT, AUTOMATED 128 10^3/uL (150-450); RED BLOOD COUNT 3.23 10^6/uL (4.30-6.10); WHITE BLOOD COUNT 6.1 10^3/uL (4.0-10.0)
[2019-08-21] MEDS: PERCOCET 5MG/325MG TAB PO PRN (06:45)
[2019-08-21] MEDS ORDERED: CHLORTHALIDONE 12.5MG PER 1/2 TABLET PO SCH (09:00)
[2019-08-21] MEDS: MOM 30ML SUSPENSION UDC PO SCH (09:00)
[2019-08-21] MEDS: SENOKOT S TAB PO SCH (09:40)
[2019-08-21] MEDS: SPIRONOLACTONE 12.5MG PER 1/2 TABLET PO SCH (09:40)
[2019-08-21] MEDS: ASPIRIN 81 MG ENTERIC TAB PO SCH (09:40)
[2019-08-21] MEDS: PANTOPRAZOLE 40MG TAB (PROTONIX) PO SCH (09:41)
[2019-08-21] MEDS: MIRALAX *UNIT DOSE* 17GM PACKET PO SCH (09:41)
[2019-08-21 10:00] VITALS: BP 120/65
--- NOTE | 2019-08-22 09:52 | ECGEPIP ---
[facility] Test Date: 2019-08-20 Pat Name: CARMEN ROCA Department: Room: [place] [address] Gender: Male Title Insurance Sales Representative: RADHA : 1960 Requested By: Michelle Nicholson Order Number: [id number] Reading MD: Andrade Monterroso Measurements Intervals [place] Rate: 64 P: 24 OR: 154 QRS: -10 QRSD: 100 T: 25 QT: 414 QTc: 430 Interpretive Statements SINUS RHYTHM NONSPECIFIC T-WAVE ABNORMALITY SIMILAR TO 07/28/19 Electronically Signed on 08-22-2019 9:52:46 EDT by Andrade Monterroso
== END 2019-08-21 14:58 | disposition home or self-care (01) | DRG 301 ==
LOC: M OR 05:47 → M MS5PR 11:40
PROVIDERS: ADMIT Orthopaedic Surgery; ATTEND Orthopaedic Surgery
PROC: 0SRB04Z Replacement of Left Hip Joint with Ceramic on Polyethylene Synthetic Substitute, Open Approach (ICD-10-PCS; principal; 2019-08-19 07:30)
DX: M16.12 Unilateral primary osteoarthritis, left hip (principal); I10 Essential (primary) hypertension; E78.5 Hyperlipidemia, unspecified; K21.9 Gastro-esophageal reflux disease without esophagitis; R61 Generalized hyperhidrosis; J44.9 Chronic obstructive pulmonary disease, unspecified; Z90.49 Acquired absence of other specified parts of digestive tract; Z87.891 Personal history of nicotine dependence; Z79.82 Long term (current) use of aspirin; Z79.899 Other long term (current) drug therapy

== ENCOUNTER → 2019-12-02 | Outpatient (REF) | payer OTHER ==
[~2019-12-02] MED LIST changes: +PERC5TAB12 PO; +XARE10TA PO
[2019-12-02 15:33] LABS: BLOOD UREA NITROGEN 23 MG/DL (7-18); CALCIUM LEVEL 8.7 MG/DL (8.8-10.2); CARBON DIOXIDE LEVEL 26 MEQ/L (21-32); CHLORIDE LEVEL 105 MEQ/L (98-107); CREATININE FOR GFR 1.19 MG/DL (0.70-1.30); GLOMERULAR FILTRATION RATE > 60.0 (>49); GLUCOSE, FASTING 146 MG/DL (70-100); HEMATOCRIT 43.2 % (42.0-52.0); HEMOGLOBIN 14.1 g/dl (13.5-17.5); MEAN CORPUSCULAR HEMOGLOBIN 29.7 pg (27.0-33.0); MEAN CORPUSCULAR HGB CONC 32.6 g/dl (32.0-36.5); MEAN CORPUSCULAR VOLUME 91.1 fl (80.0-96.0); PLATELET COUNT, AUTOMATED 183 10^3/uL (150-450); POTASSIUM SERUM 3.6 MEQ/L (3.5-5.1); RED BLOOD COUNT 4.74 10^6/uL (4.30-6.10); SODIUM LEVEL 138 MEQ/L (136-145)
== END ==
LOC: M LABDRAW1 15:11
PROVIDERS: ATTEND Physician Assistant
DX: I10 Essential (primary) hypertension (principal)

== ENCOUNTER → 2020-06-16 | Outpatient (REF) | payer OTHER ==
[~2020-06-16] MED LIST changes: -ASPI81TA85 PO; +ASPI81TA86 PO; +PANT40TA29 PO; -PANT40TA3 PO
[2020-07-15 23:13] LABS: BASO % 0.2 % (0.0-1.0); EOS # 0.1 10^3/uL (0.0-0.5); EOS % 2.2 % (0.0-3.0); HEMATOCRIT 43.8 % (42.0-52.0); HEMOGLOBIN 14.9 g/dl (13.5-17.5); LYMPH # 1.4 10^3/uL (1.5-5.0); LYMPH % 32.2 % (24.0-44.0); MEAN CORPUSCULAR VOLUME 94.2 fl (80.0-96.0); MONO # 0.5 10^3/uL (0.0-0.8); MONO % 11.9 % (0.0-5.0); NEUTROPHILS # 2.4 10^3/uL (1.5-8.5); NEUTROPHILS % 53.1 % (36.0-66.0); PLATELET COUNT, AUTOMATED 178 10^3/uL (150-450); RED BLOOD COUNT 4.65 10^6/uL (4.30-6.10); WHITE BLOOD COUNT 4.5 10^3/uL (4.0-10.0)
[2020-07-31 12:01] LABS: ALBUMIN 3.9 GM/DL (3.2-5.2); BILIRUBIN,TOTAL 0.8 MG/DL (0.2-1.0); CALCIUM LEVEL 9.1 MG/DL (8.8-10.2); CHOLESTEROL RISK RATIO 2.837 (<5); CREATININE FOR GFR 1.33 MG/DL (0.70-1.30); GLOMERULAR FILTRATION RATE 58.2 (>49); POTASSIUM SERUM 3.8 MEQ/L (3.5-5.1); TOTAL PROTEIN 7.1 GM/DL (6.4-8.2)
== END ==
LOC: M PLALAB 15:18
PROVIDERS: ATTEND Nurse Practitioner Family
DX: Z00.00 Encounter for general adult medical examination without abnormal findings (principal)

== ENCOUNTER → 2021-06-23 | Outpatient (CLI) | payer OTHER ==
[2021-06-23 15:42] LABS: CALCIUM LEVEL 8.9 MG/DL (8.8-10.2); CREATININE FOR GFR 1.55 MG/DL (0.70-1.30); GLOMERULAR FILTRATION RATE 48.6 (>49); POTASSIUM SERUM 3.9 MEQ/L (3.5-5.1); THYROID STIMULATING HORMONE 1.34 uIU/ML (0.358-3.740)
== END ==
LOC: M PLALAB 13:49
PROVIDERS: ATTEND Physician Assistant
DX: R00.2 Palpitations (principal)

== ENCOUNTER → 2021-09-06 | Outpatient (CLI) | payer OTHER ==
[2021-09-06 11:07] LABS: BASO % 0.4 % (0.0-1.0); EOS # 0.1 10^3/uL (0.0-0.5); HEMATOCRIT 43.2 % (42.0-52.0); HEMOGLOBIN 14.8 g/dl (13.5-17.5); LYMPH # 1.8 10^3/uL (1.5-5.0); LYMPH % 36.4 % (24.0-44.0); MEAN CORPUSCULAR HEMOGLOBIN 31.4 pg (27.0-33.0); MEAN CORPUSCULAR HGB CONC 34.3 g/dl (32.0-36.5); MEAN CORPUSCULAR VOLUME 91.5 fl (80.0-96.0); MONO # 0.5 10^3/uL (0.0-0.8); MONO % 10.2 % (2.0-8.0); NEUTROPHILS # 2.5 10^3/uL (1.5-8.5); NEUTROPHILS % 50.6 % (36.0-66.0); PLATELET COUNT, AUTOMATED 175 10^3/uL (150-450); RED BLOOD COUNT 4.72 10^6/uL (4.30-6.10)
[2021-09-06 11:54] LABS: ALBUMIN 3.7 GM/DL (3.2-5.2); BILIRUBIN,TOTAL 0.6 MG/DL (0.2-1.0); CALCIUM LEVEL 9.4 MG/DL (8.8-10.2); CHOLESTEROL RISK RATIO 2.7 (<5); CREATININE FOR GFR 1.4 MG/DL (0.70-1.30); GLOMERULAR FILTRATION RATE 54.7 (>49); POTASSIUM SERUM 3.9 MEQ/L (3.5-5.1); TOTAL PROTEIN 7.1 GM/DL (6.4-8.2)
== END ==
LOC: M PLALAB 08:36
PROVIDERS: ATTEND Family Medicine
DX: Z00.00 Encounter for general adult medical examination without abnormal findings (principal)

== ENCOUNTER → 2021-09-19 | Outpatient (CLI) | payer OTHER ==
--- NOTE | 2021-09-19 11:44 | REP ---
INDICATION: SMOKER. COMPARISON: CTA chest 10/06/2018, low-dose lung screening CT 08/05/2016. TECHNIQUE: Standard low-dose lung CT screening protocol FINDINGS: There is a Bochdalek's hernia again noted along the posterior aspect of the right diaphragm in the lower lung zone with some minor adjacent compressive atelectatic change, all stable for this benign finding. There is no pleural thickening, pleural based mass or calcified pleural plaque. I see no acute infiltrate, effusion or pulmonary nodule. No parenchymal mass, apical scarring or pneumothorax. Minimal cylindrical bronchiectatic change noted. Heart not grossly enlarged. No widening of the mediastinum or aortic aneurysm seen. The visualized bones show no acute findings. IMPRESSION: 1. Lung RADS category 1, negative. No lung nodules seen. 2. Patients with this category of scan have less than 1% chance of malignancy at the time of the examination. For patients with high risk developing lung malignancy, recommend continued annual screening with low-dose CT. <Electronically signed by Bartolo Weber > 09/19/21 0252
== END ==
LOC: M RAD 08:36
PROVIDERS: ATTEND Family Medicine
DX: Z12.2 Encounter for screening for malignant neoplasm of respiratory organs (principal); F17.210 Nicotine dependence, cigarettes, uncomplicated

== ENCOUNTER → 2022-06-25 | Outpatient (CLI) | payer OTHER ==
[2022-06-25 12:47] LABS: HEMATOCRIT 45.2 % (42.0-52.0); HEMOGLOBIN 15.1 g/dl (13.5-17.5); MEAN CORPUSCULAR HEMOGLOBIN 30.6 pg (27.0-33.0); MEAN CORPUSCULAR HGB CONC 33.4 g/dl (32.0-36.5); MEAN CORPUSCULAR VOLUME 91.5 fl (80.0-96.0); PLATELET COUNT, AUTOMATED 158 10^3/uL (150-450); RED BLOOD COUNT 4.94 10^6/uL (4.30-6.10); WHITE BLOOD COUNT 4.3 10^3/uL (4.0-10.0)
[2022-06-25 13:47] LABS: ALBUMIN 3.8 GM/DL (3.2-5.2); BILIRUBIN,TOTAL 0.5 MG/DL (0.2-1.0); CALCIUM LEVEL 9.6 MG/DL (8.8-10.2); CHOLESTEROL RISK RATIO 2.77 (<5); CREATININE FOR GFR 1.32 MG/DL (0.70-1.30); GLOMERULAR FILTRATION RATE 58.3 (>49); MAGNESIUM LEVEL 1.9 MG/DL (1.8-2.4); POTASSIUM SERUM 4.3 MEQ/L (3.5-5.1)
== END ==
LOC: M PLALAB 09:34
PROVIDERS: ATTEND Physician Assistant
DX: E78.2 Mixed hyperlipidemia (principal); I10 Essential (primary) hypertension

== ENCOUNTER → 2022-09-10 | Outpatient (CLI) | payer OTHER ==
[2022-09-10 12:49] LABS: HEMOGLOBIN A1c 5.9 %
[2022-09-10 13:04] LABS: ALBUMIN 3.3 GM/DL (3.2-5.2); BILIRUBIN,TOTAL 0.7 MG/DL (0.2-1.0); CALCIUM LEVEL 9.1 MG/DL (8.8-10.2); CREATININE FOR GFR 1.29 MG/DL (0.70-1.30); GLOMERULAR FILTRATION RATE 59.9 (>49); POTASSIUM SERUM 3.8 MEQ/L (3.5-5.1); TOTAL PROTEIN 6.5 GM/DL (6.4-8.2)
== END ==
LOC: M LAB 11:22
PROVIDERS: ATTEND Nurse Practitioner Family
DX: R73.01 Impaired fasting glucose (principal); R94.4 Abnormal results of kidney function studies

== ENCOUNTER → 2022-09-21 | Outpatient (CLI) | payer OTHER | LOC: M RAD 08:25 | PROVIDERS: ATTEND Nurse Practitioner Family | DX: Z12.2 Encounter for screening for malignant neoplasm of respiratory organs (principal); Z87.891 Personal history of nicotine dependence ==

== ENCOUNTER → 2023-09-11 | Outpatient (CLI) | payer OTHER ==
[2023-09-11 10:24] LABS: BASO % 0.4 % (0.0-1.0); EOS # 0.1 10^3/uL (0.0-0.5); EOS % 1.6 % (0.0-3.0); HEMATOCRIT 43.7 % (42.0-52.0); LYMPH # 1.6 10^3/uL (1.5-5.0); LYMPH % 32.2 % (24.0-44.0); MEAN CORPUSCULAR HEMOGLOBIN 31.4 pg (27.0-33.0); MEAN CORPUSCULAR HGB CONC 34.3 g/dl (32.0-36.5); MEAN CORPUSCULAR VOLUME 91.6 fl (80.0-96.0); MONO # 0.5 10^3/uL (0.0-0.8); MONO % 11.1 % (2.0-8.0); NEUTROPHILS # 2.6 10^3/uL (1.5-8.5); NEUTROPHILS % 54.3 % (36.0-66.0); PLATELET COUNT, AUTOMATED 156 10^3/uL (150-450); RED BLOOD COUNT 4.77 10^6/uL (4.30-6.10); WHITE BLOOD COUNT 4.9 10^3/uL (4.0-10.0)
[2023-09-11 10:36] LABS: ALBUMIN 3.7 G/DL (3.2-5.2); ALKALINE PHOSPHATASE 98 U/L (46-116); ALT/SGPT 22 U/L (7.0-40); AST/SGOT 17 U/L (<34); BILIRUBIN,TOTAL 0.6 MG/DL (0.3-1.2); BLOOD UREA NITROGEN 25 MG/DL (9-23); CALCIUM LEVEL 9.2 MG/DL (8.3-10.6); CARBON DIOXIDE LEVEL 28 MMOL/L (20-31); CHLORIDE LEVEL 105 MMOL/L (98-107); CHOLESTEROL LEVEL 128 MG/DL (<200); CHOLESTEROL RISK RATIO 2.78 (<5); CREATININE FOR GFR 1.17 MG/DL (0.70-1.30); GLOMERULAR FILTRATION RATE > 60.0 (>49); GLUCOSE, FASTING 99 MG/DL (74-106); LDL CHOLESTEROL 62.6 MG/DL (<100); SODIUM LEVEL 141 MMOL/L (136-145); TOTAL PROTEIN 6.5 G/DL (5.7-8.2); TRIGLYCERIDES LEVEL 97 MG/DL (<150)
[2023-09-11 10:45] LABS: HEMOGLOBIN A1c 5.3 % (4.0-6.0)
== END ==
LOC: M PLALAB 07:07
PROVIDERS: ATTEND Registered Nurse
DX: E78.2 Mixed hyperlipidemia (principal); I10 Essential (primary) hypertension; R73.01 Impaired fasting glucose

== ENCOUNTER → 2023-09-25 | Outpatient (CLI) | payer OTHER | LOC: M RAD 09:46 | PROVIDERS: ATTEND Registered Nurse | DX: Z12.2 Encounter for screening for malignant neoplasm of respiratory organs (principal); Z87.891 Personal history of nicotine dependence ==

== ENCOUNTER 2023-10-25 09:32 | Day surgery (SDC) | payer OTHER ==
[~2023-10-25] VITALS: Ht 165.1 cm; Wt 77.1 kg
[~2023-10-25 09:32] MED LIST changes: +NS 1,000 ML IV ONE
[2023-10-25] MEDS ORDERED: propofoL 200 MG/20 ML VIAL As Ordered ONE ×2 (09:56→12:04)
[2023-10-25] MEDS ORDERED: GLYCOPYRROLATE INJ 0.2 MG/ML 2 ML VIAL As Ordered ONE (12:03)
[2023-10-25 12:41] VITALS: BP 136/69; TEMP 96.9; O2SAT 96
== END 2023-10-25 12:49 | disposition home or self-care (01) ==
LOC: M OPP 09:32
PROVIDERS: ATTEND Surgery
DX: Z12.11 Encounter for screening for malignant neoplasm of colon (principal); D12.0 Benign neoplasm of cecum; K57.30 Diverticulosis of large intestine without perforation or abscess without bleeding; K64.9 Unspecified hemorrhoids; Z86.010 Personal history of colon polyps; K21.9 Gastro-esophageal reflux disease without esophagitis; I10 Essential (primary) hypertension; E78.00 Pure hypercholesterolemia, unspecified; J44.9 Chronic obstructive pulmonary disease, unspecified; Z79.899 Other long term (current) drug therapy; Z87.891 Personal history of nicotine dependence

== ENCOUNTER → 2024-05-26 | Outpatient (CLI) | payer MEDICARE, OTHER ==
[~2024-05-26] MED LIST changes: +ISOVUE-300 61% 100ML VIAL As Ordered ONE; +LIDOCAINE 1% MDV 20ML VIAL As Ordered ONE; -NS 1,000 ML IV ONE; +TRIAMCINOLONE ACETONIDE SUSP 40MG/ML 1ML VIAL As Ordered ONE
== END ==
LOC: M RAD 14:23
PROVIDERS: ATTEND Orthopaedic Surgery
DX: M16.11 Unilateral primary osteoarthritis, right hip (principal)
CPT/HCPCS: 20610; 77002; J3301; Q9967

== ENCOUNTER → 2024-10-02 | Outpatient (CLI) | payer MEDICARE, OTHER ==
[~2024-10-02] MED LIST changes: -ISOVUE-300 61% 100ML VIAL As Ordered ONE; -LIDOCAINE 1% MDV 20ML VIAL As Ordered ONE; -TRIAMCINOLONE ACETONIDE SUSP 40MG/ML 1ML VIAL As Ordered ONE
[2024-10-02 10:44] LABS: BASO % 0.5 % (0.0-1.0); EOS # 0.1 10^3/uL (0.0-0.5); EOS % 2.1 % (0.0-3.0); HEMOGLOBIN 15.2 g/dl (13.5-17.5); LYMPH # 1.5 10^3/uL (1.5-5.0); LYMPH % 34.7 % (24.0-44.0); MEAN CORPUSCULAR HEMOGLOBIN 31.5 pg (27.0-33.0); MEAN CORPUSCULAR HGB CONC 34.5 g/dl (32.0-36.5); MEAN CORPUSCULAR VOLUME 91.3 fl (80.0-96.0); MONO # 0.6 10^3/uL (0.0-0.8); MONO % 13.8 % (2.0-8.0); NEUTROPHILS # 2.1 10^3/uL (1.5-8.5); NEUTROPHILS % 48.9 % (36.0-66.0); PLATELET COUNT, AUTOMATED 173 10^3/uL (150-450); RED BLOOD COUNT 4.82 10^6/uL (4.30-6.10); WHITE BLOOD COUNT 4.3 10^3/uL (4.0-10.0)
[2024-10-02 10:52] LABS: ALBUMIN 3.7 G/DL (3.2-5.2); ALKALINE PHOSPHATASE 110 U/L (40-129); ALT/SGPT 18 U/L (7.0-40); AST/SGOT 10 U/L (<34); BILIRUBIN,TOTAL 0.9 MG/DL (0.3-1.2); BLOOD UREA NITROGEN 22 MG/DL (9-23); CALCIUM LEVEL 9.8 MG/DL (8.3-10.6); CARBON DIOXIDE LEVEL 26 MMOL/L (20-31); CHLORIDE LEVEL 107 MMOL/L (98-107); CHOLESTEROL LEVEL 128 MG/DL (<200); GLOMERULAR FILTRATION RATE > 60.0 (>49); GLUCOSE, FASTING 106 MG/DL (74-106); HDL CHOLESTEROL 39.9 MG/DL (>40); LDL CHOLESTEROL 70.3 MG/DL (<100); NON-HDL-C 88.1 MG/DL; POTASSIUM SERUM 4.1 MMOL/L (3.5-5.1); SODIUM LEVEL 140 MMOL/L (136-145); TOTAL PROTEIN 6.8 G/DL (5.7-8.2); TRIGLYCERIDES LEVEL 89 MG/DL (<150)
[2024-10-02 11:14] LABS: HEMOGLOBIN A1c 5.5 % (4.0-6.0)
== END ==
LOC: M PLALAB 08:32
PROVIDERS: ATTEND Registered Nurse
DX: Z00.00 Encounter for general adult medical examination without abnormal findings (principal); I10 Essential (primary) hypertension; E78.2 Mixed hyperlipidemia; R73.01 Impaired fasting glucose; Z11.3 Encounter for screening for infections with a predominantly sexual mode of transmission; Z72.89 Other problems related to lifestyle
CPT/HCPCS: 36415; 80053; 80061; 83036; 85025; G0472

== ENCOUNTER → 2024-12-08 | Outpatient (CLI) | payer MEDICARE, OTHER | LOC: M PLAIMG 11:19 | PROVIDERS: ATTEND Nurse Practitioner Family | DX: J20.9 Acute bronchitis, unspecified (principal); J98.11 Atelectasis ==

== ENCOUNTER → 2025-01-21 | Outpatient (CLI) | payer MEDICARE, OTHER | LOC: M CARPUL 14:09 | PROVIDERS: ATTEND Registered Nurse | DX: I35.9 Nonrheumatic aortic valve disorder, unspecified (principal) ==

== ENCOUNTER → 2025-02-02 | Outpatient (CLI) | payer MEDICARE, OTHER | LOC: M RAD 08:30 | PROVIDERS: ATTEND Registered Nurse | DX: Z12.2 Encounter for screening for malignant neoplasm of respiratory organs (principal); Z87.891 Personal history of nicotine dependence; R91.8 Other nonspecific abnormal finding of lung field; R59.0 Localized enlarged lymph nodes; I70.0 Atherosclerosis of aorta; I25.10 Atherosclerotic heart disease of native coronary artery without angina pectoris; K44.9 Diaphragmatic hernia without obstruction or gangrene ==

== ENCOUNTER 2025-03-10 08:59 | Day surgery (SDC) | payer MEDICARE, OTHER ==
[~2025-03-10] VITALS: Ht 165.1 cm; Wt 83.0 kg
[~2025-03-10 08:59] MED LIST changes: +ACET-683 PO; +ALBUTEROL SULFATE 2.5MG/0.5ML INH CONCENTRATE NEB SOLN INH ONE; +ASPI81TA26 PO; +IBUP200C25 PO; +LIDOCAINE PRES-FREE 2% 10ML AMP INH ONE; +VENTAER INH
[2025-03-10] MEDS: LR 1,000 ML IV SCH (09:54)
[2025-03-10] MEDS ORDERED: ROCURONIUM BROMIDE 50MG/5ML VIAL As Ordered ONE (10:03)
[2025-03-10] MEDS ORDERED: propofoL 200 MG/20 ML VIAL As Ordered ONE (10:03)
[2025-03-10] MEDS ORDERED: LIDOCAINE 2% 100MG/5ML SDV (FOR ANES.) As Ordered ONE (10:03)
[2025-03-10] MEDS ORDERED: LIDOCAINE 5% OINT 30GM TUBE As Ordered ONE (10:09)
[2025-03-10] MEDS ORDERED: MIDAZOLAM INJ 2MG/2ML VIAL As Ordered ONE (10:39)
[2025-03-10] MEDS: CETACAINE SPRAY 5GM As Ordered ONE (11:09)
[2025-03-10] MEDS ORDERED: SUGAMMADEX SODIUM 500 MG/5 ML VIAL (BRIDION) As Ordered ONE (11:42)
[2025-03-10] MEDS: THROMBIN 5,000 UNITS VIAL As Ordered ONE (11:50)
[2025-03-10] MEDS: EPINEPHrine 1MG/10ML SYRINGE 1.5IN As Ordered ONE (11:55)
[2025-03-10] MEDS ORDERED: oxyCODONE 5MG TAB PO PRN (12:00)
[2025-03-10] MEDS ORDERED: ONDANSETRON 4MG 2ML VIAL IV PRN (12:00)
[2025-03-10] MEDS ORDERED: HYDROMORPHONE HCL 0.5 MG/ 0.5 ML SYRINGE IV PRN (12:00)
[2025-03-10] MEDS ORDERED: LR 1,000 ML IV SCH (12:00)
[2025-03-10] MEDS ORDERED: fentaNYL 100 MCG/2 ML INJECTION IV PRN (12:00)
[2025-03-10] MEDS ORDERED: ONDANSETRON 4MG 2ML VIAL As Ordered ONE (12:13)
[2025-03-10 13:30] VITALS: BP 142/86; TEMP 97.1; O2SAT 98
== END 2025-03-10 13:38 | disposition home or self-care (01) ==
LOC: M SDC 08:59
PROVIDERS: ATTEND Internal Medicine Critical Care Medicine
DX: C34.31 Malignant neoplasm of lower lobe, right bronchus or lung (principal); J44.9 Chronic obstructive pulmonary disease, unspecified; Z88.5 Allergy status to narcotic agent; Z87.891 Personal history of nicotine dependence; Z79.82 Long term (current) use of aspirin; Z79.899 Other long term (current) drug therapy; C77.9 Secondary and unspecified malignant neoplasm of lymph node, unspecified
CPT/HCPCS: 31625; 31654; 71045; 88173; 88305; J0171; J1100; J2250; J2405

== ENCOUNTER 2025-03-19 12:15 | Inpatient (IN) | payer MEDICARE, OTHER ==
[~2025-03-19] VITALS: Ht 165.1 cm; Wt 80.4 kg
[~2025-03-19 12:15] MED LIST changes: -ALBUTEROL SULFATE 2.5MG/0.5ML INH CONCENTRATE NEB SOLN INH ONE; -LIDOCAINE PRES-FREE 2% 10ML AMP INH ONE
[2025-03-19] MEDS: NS (Normal Saline) 0.9% 1,000 ML IV SCH (13:27)
[2025-03-19] MEDS ORDERED: HOME MED LIST COMPLETE! XX SCH (14:05)
[2025-03-19 14:47] LABS: CREATININE,RANDOM URINE 142.5 MG/DL
[2025-03-19 17:00] VITALS: BP 173/82; TEMP 98.1; O2SAT 97
[2025-03-19 17:55] LABS: BLOOD UREA NITROGEN 14 MG/DL (9-23); CALCIUM LEVEL 8.6 MG/DL (8.3-10.6); CARBON DIOXIDE LEVEL 27 MMOL/L (20-31); CHLORIDE LEVEL 83 MMOL/L (98-107); CREATININE FOR GFR 0.73 MG/DL (0.70-1.30); GLOMERULAR FILTRATION RATE > 90.0 (>49); GLUCOSE, FASTING 100 MG/DL (74-106); POTASSIUM SERUM 4.3 MMOL/L (3.5-5.1); SODIUM LEVEL 116 MMOL/L (136-145)
[2025-03-19] MEDS ORDERED: NS (Normal Saline) 0.9% 1,000 ML IV SCH (18:30)
[2025-03-19] MEDS: SODIUM CHLORIDE 1 GM TAB PO ONE (18:51)
[2025-03-19 20:36] VITALS: BP 118/60; TEMP 98.7; O2SAT 97
[2025-03-19] MEDS: amLODIPine 5 MG TAB PO SCH (21:00)
[2025-03-19] MEDS: ONDANSETRON 4MG 2ML VIAL IV ONE (21:01)
[2025-03-19] MEDS: ATORVASTATIN 20 MG TAB PO SCH (21:03)
[2025-03-19] MEDS: ACETAMINOPHEN 325 MG TAB PO PRN (21:04)
[2025-03-19 23:03] LABS: BLOOD UREA NITROGEN 16 MG/DL (9-23); CALCIUM LEVEL 8.5 MG/DL (8.3-10.6); CARBON DIOXIDE LEVEL 27 MMOL/L (20-31); CHLORIDE LEVEL 86 MMOL/L (98-107); CREATININE FOR GFR 0.78 MG/DL (0.70-1.30); GLOMERULAR FILTRATION RATE > 90.0 (>49); GLUCOSE, FASTING 109 MG/DL (74-106); POTASSIUM SERUM 4.2 MMOL/L (3.5-5.1); SODIUM LEVEL 118 MMOL/L (136-145)
[2025-03-19 23:36] VITALS: BP 111/61; TEMP 98.9; O2SAT 96
[2025-03-20 02:48] LABS: BLOOD UREA NITROGEN 14 MG/DL (9-23); CALCIUM LEVEL 8.3 MG/DL (8.3-10.6); CARBON DIOXIDE LEVEL 25 MMOL/L (20-31); CHLORIDE LEVEL 86 MMOL/L (98-107); CREATININE FOR GFR 0.79 MG/DL (0.70-1.30); GLOMERULAR FILTRATION RATE > 90.0 (>49); GLUCOSE, FASTING 99 MG/DL (74-106); POTASSIUM SERUM 4.2 MMOL/L (3.5-5.1); SODIUM LEVEL 117 MMOL/L (136-145)
[2025-03-20 03:38] VITALS: BP 121/67; TEMP 99.3; O2SAT 97
[2025-03-20 05:04] LABS: BASO % 0.5 % (0.0-1.0); EOS # 0.1 10^3/uL (0.0-0.5); EOS % 1.4 % (0.0-3.0); HEMOGLOBIN 13.2 g/dl (13.5-17.5); LYMPH % 27.5 % (24.0-44.0); MEAN CORPUSCULAR HEMOGLOBIN 31.1 pg (27.0-33.0); MEAN CORPUSCULAR VOLUME 84.9 fl (80.0-96.0); MONO # 0.7 10^3/uL (0.0-0.8); MONO % 18.5 % (2.0-8.0); NEUTROPHILS # 1.9 10^3/uL (1.5-8.5); NEUTROPHILS % 51.3 % (36.0-66.0); PLATELET COUNT, AUTOMATED 150 10^3/uL (150-450); RED BLOOD COUNT 4.24 10^6/uL (4.30-6.10); WHITE BLOOD COUNT 3.7 10^3/uL (4.0-10.0)
[2025-03-20 05:30] LABS: MEAN CORPUSCULAR HGB CONC 36.7 g/dl (32.0-36.5)
[2025-03-20 05:45] LABS: BLOOD UREA NITROGEN 13 MG/DL (9-23); CALCIUM LEVEL 8.3 MG/DL (8.3-10.6); CARBON DIOXIDE LEVEL 25 MMOL/L (20-31); CHLORIDE LEVEL 86 MMOL/L (98-107); CREATININE FOR GFR 0.79 MG/DL (0.70-1.30); GLOMERULAR FILTRATION RATE > 90.0 (>49); GLUCOSE, FASTING 98 MG/DL (74-106); POTASSIUM SERUM 4.2 MMOL/L (3.5-5.1); SODIUM LEVEL 117 MMOL/L (136-145)
[2025-03-20 07:31] VITALS: BP 120/65; TEMP 97.6; O2SAT 96
[2025-03-20] MEDS: TOLVAPTAN 15 MG TAB (SAMSCA) PO ONE (08:45)
[2025-03-20] MEDS: PANTOPRAZOLE 40MG TAB (PROTONIX) PO SCH (08:45)
[2025-03-20] MEDS: ASPIRIN 81MG ENTERIC TABLET PO SCH (08:45)
[2025-03-20] MEDS: SODIUM CHLORIDE 1 GM TAB PO SCH (08:45)
[2025-03-20 11:40] LABS: BLOOD UREA NITROGEN 14 MG/DL (9-23); CALCIUM LEVEL 9.2 MG/DL (8.3-10.6); CARBON DIOXIDE LEVEL 28 MMOL/L (20-31); CHLORIDE LEVEL 87 MMOL/L (98-107); CREATININE FOR GFR 0.85 MG/DL (0.70-1.30); GLOMERULAR FILTRATION RATE > 90.0 (>49); GLUCOSE, FASTING 110 MG/DL (74-106); POTASSIUM SERUM 4.5 MMOL/L (3.5-5.1); SODIUM LEVEL 121 MMOL/L (136-145)
[2025-03-20 11:58] VITALS: BP 109/63; TEMP 97.9; O2SAT 96
[2025-03-20 16:00] VITALS: BP 126/64; TEMP 97.6; O2SAT 96
[2025-03-20 17:42] LABS: CALCIUM LEVEL 9.6 MG/DL (8.3-10.6); CREATININE FOR GFR 1.14 MG/DL (0.70-1.30); GLOMERULAR FILTRATION RATE 70.9 (>49); POTASSIUM SERUM 4.5 MMOL/L (3.5-5.1)
[2025-03-20 19:31] VITALS: BP 106/57; TEMP 98.9; O2SAT 95
[2025-03-20 21:34] LABS: CALCIUM LEVEL 9.8 MG/DL (8.3-10.6); CREATININE FOR GFR 1.15 MG/DL (0.70-1.30); GLOMERULAR FILTRATION RATE 70.2 (>49); POTASSIUM SERUM 4.8 MMOL/L (3.5-5.1)
[2025-03-20] MEDS: D5W 1,000 ML IV SCH (22:07)
[2025-03-20 23:52] VITALS: BP 138/65; TEMP 99.1; O2SAT 94
[2025-03-21] VITALS (7 sets, daily range): BP systolic 104–138; BP diastolic 57–71; TEMP 97.5–99.3; O2SAT 94–99
[2025-03-21 05:05] LABS: BASO % 0.4 % (0.0-1.0); EOS % 0.8 % (0.0-3.0); HEMATOCRIT 42.2 % (42.0-52.0); HEMOGLOBIN 14.9 g/dl (13.5-17.5); LYMPH # 1.1 10^3/uL (1.5-5.0); LYMPH % 21.2 % (24.0-44.0); MEAN CORPUSCULAR HEMOGLOBIN 30.8 pg (27.0-33.0); MEAN CORPUSCULAR HGB CONC 35.3 g/dl (32.0-36.5); MEAN CORPUSCULAR VOLUME 87.4 fl (80.0-96.0); MONO # 0.7 10^3/uL (0.0-0.8); MONO % 13.7 % (2.0-8.0); NEUTROPHILS # 3.2 10^3/uL (1.5-8.5); NEUTROPHILS % 63.3 % (36.0-66.0); PLATELET COUNT, AUTOMATED 179 10^3/uL (150-450); RED BLOOD COUNT 4.83 10^6/uL (4.30-6.10)
[2025-03-21 05:29] LABS: CALCIUM LEVEL 9.4 MG/DL (8.3-10.6); CREATININE FOR GFR 1.04 MG/DL (0.70-1.30); GLOMERULAR FILTRATION RATE 79.2 (>49); POTASSIUM SERUM 4.9 MMOL/L (3.5-5.1)
[2025-03-21] MEDS: D5W 1,000 ML IV ONE (07:32)
[2025-03-21] MEDS: D5W 1,000 ML IV SCH (08:44)
[2025-03-21 09:44] LABS: CALCIUM LEVEL 9.1 MG/DL (8.3-10.6); CREATININE FOR GFR 1.01 MG/DL (0.70-1.30); POTASSIUM SERUM 3.9 MMOL/L (3.5-5.1)
[2025-03-21 13:36] LABS: CALCIUM LEVEL 9.4 MG/DL (8.3-10.6); CREATININE FOR GFR 1.02 MG/DL (0.70-1.30); GLOMERULAR FILTRATION RATE 81.1 (>49); POTASSIUM SERUM 4.4 MMOL/L (3.5-5.1)
[2025-03-21] MEDS: DEXTROMETHORPHAN 60MG/10ML SUSP 90ML BTL(DELSYM) PO SCH (14:19)
[2025-03-21 17:37] LABS: CALCIUM LEVEL 9.2 MG/DL (8.3-10.6); CREATININE FOR GFR 0.97 MG/DL (0.70-1.30); GLOMERULAR FILTRATION RATE 86.1 (>49); POTASSIUM SERUM 4.7 MMOL/L (3.5-5.1)
[2025-03-21 21:33] LABS: CALCIUM LEVEL 9.3 MG/DL (8.3-10.6); CREATININE FOR GFR 1.14 MG/DL (0.70-1.30); GLOMERULAR FILTRATION RATE 70.9 (>49); POTASSIUM SERUM 4.2 MMOL/L (3.5-5.1)
[2025-03-22 03:15] VITALS: BP 131/65; TEMP 98.3; O2SAT 96
[2025-03-22 06:21] LABS: BASO % 0.4 % (0.0-1.0); EOS # 0.1 10^3/uL (0.0-0.5); EOS % 1.1 % (0.0-3.0); HEMATOCRIT 38.3 % (42.0-52.0); HEMOGLOBIN 13.5 g/dl (13.5-17.5); LYMPH # 1.1 10^3/uL (1.5-5.0); LYMPH % 19.9 % (24.0-44.0); MEAN CORPUSCULAR HEMOGLOBIN 31.7 pg (27.0-33.0); MEAN CORPUSCULAR HGB CONC 35.2 g/dl (32.0-36.5); MEAN CORPUSCULAR VOLUME 89.9 fl (80.0-96.0); MONO # 0.7 10^3/uL (0.0-0.8); MONO % 12.8 % (2.0-8.0); NEUTROPHILS # 3.5 10^3/uL (1.5-8.5); NEUTROPHILS % 65.2 % (36.0-66.0); PLATELET COUNT, AUTOMATED 151 10^3/uL (150-450); RED BLOOD COUNT 4.26 10^6/uL (4.30-6.10); WHITE BLOOD COUNT 5.3 10^3/uL (4.0-10.0)
[2025-03-22 06:48] LABS: CALCIUM LEVEL 8.9 MG/DL (8.3-10.6); CREATININE FOR GFR 1.04 MG/DL (0.70-1.30); GLOMERULAR FILTRATION RATE 79.2 (>49); POTASSIUM SERUM 4.4 MMOL/L (3.5-5.1)
[2025-03-22 07:45] VITALS: BP 123/62; TEMP 98.2; O2SAT 95
[2025-03-22] MEDS ORDERED: DELS30LI8 PO (10:37)
[2025-03-22] MEDS ORDERED: AMLO1TAB24 PO (10:37)
[2025-03-22] MEDS ORDERED: SODI1TAB12 PO (13:09)
[2025-03-23 15:07] LABS: % CD19+ LYMPHS 9.9 % (3.3-25.4); % CD4+ LYMPHS 49.7 % (30.8-58.5); % CD8+ LYMPHS 31.5 % (12.0-35.5); ABS CD19+ LYMPH 109 /uL (12-645); ABS CD8 SUPPRESSOR 347 /uL (109-897); ABSOLUTE CD 3 902 /uL (622-2402); ABSOLUTE CD4 HELPER 547 /uL (359-1519); BASOPHILS 0 % (Not Estab.); CD4-CD8 RATIO 1.58 (0.92-3.72); EOSINOPHILS 1 % (Not Estab.); EOSINOPHILS ABSOLUTE 0.1 x10E3/uL (0.0-0.4); HCT 40.2 % (37.5-51.0); HGB 13.5 g/dL (13.0-17.7); LYMPHOCYTES 22 % (Not Estab.); LYMPHOCYTES ABSOLUTE 1.1 x10E3/uL (0.7-3.1); MCH 31.1 pg (26.6-33.0); MCHC 33.6 g/dL (31.5-35.7); MCV 93 fL (79-97); MONOCYTES 11 % (Not Estab.); MONOCYTES ABSOLUTE 0.6 x10E3/uL (0.1-0.9); NEUTROPHILS 66 % (Not Estab.); NEUTROPHILS ABSOLUTE 3.4 x10E3/uL (1.4-7.0); PLT 160 x10E3/uL (150-450); RBC 4.34 x10E6/uL (4.14-5.80); RDW 12.7 % (11.6-15.4); WBC 5.2 x10E3/uL (3.4-10.8)
== END 2025-03-22 11:38 | disposition home or self-care (01) | DRG 644 ==
LOC: M ED 12:15 → M ED INP 15:31 → M PCU 16:35
PROVIDERS: ADMIT Internal Medicine Nephrology; ATTEND Internal Medicine Nephrology
DX: E22.2 Syndrome of inappropriate secretion of antidiuretic hormone (principal); C34.31 Malignant neoplasm of lower lobe, right bronchus or lung; K64.8 Other hemorrhoids; E78.5 Hyperlipidemia, unspecified; K21.9 Gastro-esophageal reflux disease without esophagitis; I35.0 Nonrheumatic aortic (valve) stenosis; I10 Essential (primary) hypertension; N20.0 Calculus of kidney; K57.90 Diverticulosis of intestine, part unspecified, without perforation or abscess without bleeding; Z88.5 Allergy status to narcotic agent; Z79.82 Long term (current) use of aspirin; Z79.899 Other long term (current) drug therapy; K63.5 Polyp of colon

== ENCOUNTER → 2025-03-24 | Outpatient (CLI) | payer MEDICARE, OTHER ==
[~2025-03-24] MED LIST changes: +AMLO1TAB24 PO; +DELS30LI8 PO; +PROHANCE 279.3MG/ML 15ML VIAL As Ordered ONE; +PROHANCE 279.3MG/ML 5ML VIAL As Ordered ONE; +SODI1TAB12 PO
== END ==
LOC: M RAD 08:05
PROVIDERS: ATTEND Internal Medicine Hematology & Oncology
DX: C34.31 Malignant neoplasm of lower lobe, right bronchus or lung (principal)
CPT/HCPCS: 70553; A9576

== ENCOUNTER → 2025-03-29 | Outpatient (CLI) | payer MEDICARE, OTHER ==
[~2025-03-29] MED LIST changes: -PROHANCE 279.3MG/ML 15ML VIAL As Ordered ONE; -PROHANCE 279.3MG/ML 5ML VIAL As Ordered ONE
== END ==
LOC: M PLARAD 13:08
PROVIDERS: ATTEND Internal Medicine Hematology & Oncology
DX: C34.31 Malignant neoplasm of lower lobe, right bronchus or lung (principal)
CPT/HCPCS: 78815; A9552

== ENCOUNTER → 2025-06-28 | Outpatient (CLI) | payer MEDICARE, OTHER ==
[~2025-06-28] MED LIST changes: +AMOX500C PO; +BENZ150C5 PO; +BENZ200C70 PO; +DELS1LIQ3 PO; +DOXY-441; +ISOVUE-370 76% 100 ML VIAL As Ordered ONE; +ONDA-84 PO; +PROC10TA5 PO
== END ==
LOC: M RAD 13:45
PROVIDERS: ATTEND Internal Medicine Medical Oncology
DX: C34.90 Malignant neoplasm of unspecified part of unspecified bronchus or lung (principal); Z90.49 Acquired absence of other specified parts of digestive tract; N28.1 Cyst of kidney, acquired; N20.0 Calculus of kidney; C79.51 Secondary malignant neoplasm of bone; K57.30 Diverticulosis of large intestine without perforation or abscess without bleeding; J98.11 Atelectasis; I25.10 Atherosclerotic heart disease of native coronary artery without angina pectoris; I51.7 Cardiomegaly; M47.814 Spondylosis without myelopathy or radiculopathy, thoracic region
CPT/HCPCS: 71260; 74177; Q9967

== ENCOUNTER → 2025-08-06 | Outpatient (CLI) | payer MEDICARE ==
[~2025-08-06] MED LIST changes: -ISOVUE-370 76% 100 ML VIAL As Ordered ONE
[2025-08-06 14:56] LABS: CHOLESTEROL LEVEL 123.0 MG/DL (<200); CHOLESTEROL RISK RATIO 2.93 (<5); LDL CHOLESTEROL 65.7 MG/DL (<100); NON-HDL-C 81.1 MG/DL; TRIGLYCERIDES LEVEL 77.0 MG/DL (<150)
[2025-08-06 15:37] LABS: ESTIMATED AVERAGE GLUCOSE 111.0 MG/DL (60-110)
== END ==
LOC: M PLALAB 08:16
PROVIDERS: ATTEND Registered Nurse
DX: I10 Essential (primary) hypertension (principal); Z79.899 Other long term (current) drug therapy

== ENCOUNTER → 2025-08-10 | Outpatient (CLI) | payer MEDICARE | LOC: M RAD 09:54 | PROVIDERS: ATTEND Registered Nurse | DX: M25.551 Pain in right hip (principal) ==

== ENCOUNTER → 2025-08-27 | Outpatient (CLI) | payer MEDICARE, OTHER | LOC: M PLARAD 09:58 | PROVIDERS: ATTEND Internal Medicine Medical Oncology | DX: C34.90 Malignant neoplasm of unspecified part of unspecified bronchus or lung (principal) ==

== ENCOUNTER → 2025-09-22 | Outpatient (CLI) | payer MEDICARE ==
[~2025-09-22] MED LIST changes: +ISOVUE-370 76% 100 ML VIAL As Ordered ONE
== END ==
LOC: M RAD 16:16
PROVIDERS: ATTEND Internal Medicine Medical Oncology
DX: C34.90 Malignant neoplasm of unspecified part of unspecified bronchus or lung (principal)
CPT/HCPCS: 71260; 74177; Q9967

== ENCOUNTER → 2025-10-12 | Outpatient (CLI) | payer MEDICARE, OTHER ==
[~2025-10-12] MED LIST changes: +DOXY100T27; -ISOVUE-370 76% 100 ML VIAL As Ordered ONE
== END ==
LOC: M PLARAD 11:51
PROVIDERS: ATTEND Internal Medicine Medical Oncology
DX: C34.31 Malignant neoplasm of lower lobe, right bronchus or lung (principal)
CPT/HCPCS: 78815; A9552

== ENCOUNTER → 2025-10-13 | Outpatient (CLI) | payer MEDICARE, OTHER | LOC: M ONCR 15:27 | PROVIDERS: ATTEND General Practice | DX: C34.11 Malignant neoplasm of upper lobe, right bronchus or lung (principal); C79.51 Secondary malignant neoplasm of bone; Z79.82 Long term (current) use of aspirin; Z79.899 Other long term (current) drug therapy; Z87.891 Personal history of nicotine dependence; Z88.5 Allergy status to narcotic agent; Z92.21 Personal history of antineoplastic chemotherapy; Z92.3 Personal history of irradiation ==

== ENCOUNTER 2025-10-17 09:39 | Emergency (ER) | payer MEDICARE, OTHER ==
[~2025-10-17] VITALS: Ht 165.1 cm; Wt 75.8 kg
[2025-10-17] MEDS ORDERED: ISOVUE-370 76% 100 ML VIAL As Ordered ONE (12:15)
[2025-10-17] MEDS: HEPARIN LOCK FLUSH 100 UNITS/ML 3 ML SYRINGE IV SCH (12:21)
[2025-10-17] MEDS: HEPARIN LOCK FLUSH 100 UNITS/ML 3 ML SYRINGE IV PRN (12:21)
[2025-10-17 12:29] LABS: BASO # 0.0 10^3/uL (0.0-0.2); BASO % 0.6 % (0.0-1.0); EOS # 0.1 10^3/uL (0.0-0.5); EOS % 2.2 % (0.0-3.0); LYMPH # 0.6 10^3/uL (1.5-5.0); LYMPH % 20.2 % (24.0-44.0); MONO # 0.5 10^3/uL (0.0-0.8); MONO % 14.4 % (2.0-8.0); NEUTROPHILS # 1.9 10^3/uL (1.5-8.5); NEUTROPHILS % 62.3 % (36.0-66.0); PLATELET COUNT, AUTOMATED 138 10^3/uL (150-450)
[2025-10-17 12:56] LABS: C REACTIVE PROTEIN QUANTITATIV < 0.50 MG/DL (<1.0)
[2025-10-17 12:57] LABS: ALT/SGPT 18 U/L (7.0-40); AST/SGOT 19 U/L (<34); CALCIUM LEVEL 8.7 MG/DL (8.3-10.6); CARBON DIOXIDE LEVEL 26 MMOL/L (20-31); CHLORIDE LEVEL 98 MMOL/L (98-107); CREATININE FOR GFR 0.76 MG/DL (0.70-1.30); GLOMERULAR FILTRATION RATE > 90.0 (>49); MAGNESIUM LEVEL 1.8 MG/DL (1.8-2.4); POTASSIUM SERUM 4.2 MMOL/L (3.5-5.1); SODIUM LEVEL 131 MMOL/L (136-145)
[2025-10-17 12:59] LABS: VITAMIN B12 LEVEL 380 PG/ML (211-911)
[2025-10-17 13:40] LABS: KETONE, URINE AUTO RFX TRACE mg/dL (NEGATIVE); MUCUS, URINE RFX SMALL (NEGATIVE); NITRITE, URINE AUTO RFX NEGATIVE (NEGATIVE); RBC, URINE AUTO RFX 6 /HPF (0-3); SQUAM EPITHELIAL CELL UR AURFX 0 /HPF (0-6); WBC, URINE AUTO RFX 7 /HPF (0-3)
[2025-10-17 13:41] LABS: LEUKOCYTE ESTERASE UR AUTO RFX TRACE (NEGATIVE)
[2025-10-17] MEDS ORDERED: PROHANCE 279.3MG/ML 15ML VIAL As Ordered ONE (14:02)
[2025-10-17 17:15] VITALS: BP 147/75; O2SAT 98
[2025-10-17 17:48] VITALS: TEMP 98.5
== END 2025-10-17 17:50 | disposition home or self-care (01) ==
LOC: M ED 09:39
DX: C79.31 Secondary malignant neoplasm of brain (principal); C34.90 Malignant neoplasm of unspecified part of unspecified bronchus or lung; G32.81 Cerebellar ataxia in diseases classified elsewhere; I67.82 Cerebral ischemia; I10 Essential (primary) hypertension; J44.9 Chronic obstructive pulmonary disease, unspecified; Z88.5 Allergy status to narcotic agent; Z87.442 Personal history of urinary calculi; Z79.1 Long term (current) use of non-steroidal anti-inflammatories (NSAID); Z79.899 Other long term (current) drug therapy; Z79.02 Long term (current) use of antithrombotics/antiplatelets; Z79.82 Long term (current) use of aspirin
CPT/HCPCS: 70450; 70496; 70498; 70553; 80048; 80076; 81001; 82607; 83735; 85025; 85652; 86140; 87086; 93005; 96374; 99284; A9579; J1100; J1642; Q9967

== ENCOUNTER 2025-11-08 10:46 | Emergency (ER) | payer MEDICARE, OTHER ==
[~2025-11-08] VITALS: Ht 165.1 cm; Wt 70.5 kg
[~2025-11-08 10:46] MED LIST changes: +DEXA2TA PO; +MEMA10TA PO
[2025-11-08] MEDS ORDERED: SODI1TAB6 (11:05)
[2025-11-08] MEDS ORDERED: CETIRIZINE 10 MG TAB PO ONE (12:00)
[2025-11-08 12:16] LABS: BASO # 0.0 10^3/uL (0.0-0.2); BASO % 0.1 % (0.0-1.0); EOS # 0.0 10^3/uL (0.0-0.5); EOS % 0.4 % (0.0-3.0); LYMPH # 0.5 10^3/uL (1.5-5.0); LYMPH % 6.9 % (24.0-44.0); MONO # 1.0 10^3/uL (0.0-0.8); MONO % 12.5 % (2.0-8.0); NEUTROPHILS # 6.1 10^3/uL (1.5-8.5); NEUTROPHILS % 79.5 % (36.0-66.0); PLATELET COUNT, AUTOMATED 173 10^3/uL (150-450)
[2025-11-08] MEDS: ONDANSETRON 4MG/2ML VIAL IV ONE (12:23)
[2025-11-08 12:32] LABS: KETONE, URINE AUTO RFX NEGATIVE (NEGATIVE); LEUKOCYTE ESTERASE UR AUTO RFX NEGATIVE (NEGATIVE); MUCUS, URINE RFX SMALL (NEGATIVE); NITRITE, URINE AUTO RFX NEGATIVE (NEGATIVE); RBC, URINE AUTO RFX 3 /HPF (0-3); SQUAM EPITHELIAL CELL UR AURFX 0 /HPF (0-6); WBC, URINE AUTO RFX 5 /HPF (0-3)
[2025-11-08 12:37] LABS: INR 1.03
[2025-11-08] MEDS ORDERED: ISOVUE-370 76% 100 ML VIAL As Ordered ONE (12:42)
[2025-11-08 12:44] LABS: CK-MB VALUE MASS 2.1 NG/ML (<3.6)
[2025-11-08 12:46] LABS: C REACTIVE PROTEIN QUANTITATIV < 0.50 MG/DL (<1.0)
[2025-11-08 12:47] LABS: ALT/SGPT 34 U/L (7.0-40); AST/SGOT 23 U/L (<34); CALCIUM LEVEL 9.5 MG/DL (8.3-10.6); CARBON DIOXIDE LEVEL 26 MMOL/L (20-31); CHLORIDE LEVEL 100 MMOL/L (98-107); CREATININE FOR GFR 0.82 MG/DL (0.70-1.30); GLOMERULAR FILTRATION RATE > 90.0 (>49); POTASSIUM SERUM 4.0 MMOL/L (3.5-5.1); SODIUM LEVEL 137 MMOL/L (136-145)
[2025-11-08 13:00] LABS: CPK CREATINE PHOSPHOKINASE 41 U/L (46-171); MB/CK RELATIVE INDEX 5.12 (< OR =4)
[2025-11-08 15:02] VITALS: O2SAT 96
[2025-11-08 15:12] VITALS: BP 163/79
[2025-11-08 15:15] VITALS: TEMP 97.4
== END 2025-11-08 15:36 | disposition home or self-care (01) ==
LOC: M ED 10:46
DX: C78.7 Secondary malignant neoplasm of liver and intrahepatic bile duct (principal); C34.90 Malignant neoplasm of unspecified part of unspecified bronchus or lung; C79.51 Secondary malignant neoplasm of bone; C79.31 Secondary malignant neoplasm of brain; K44.9 Diaphragmatic hernia without obstruction or gangrene; R00.1 Bradycardia, unspecified; I45.10 Unspecified right bundle-branch block; K21.9 Gastro-esophageal reflux disease without esophagitis; Z87.442 Personal history of urinary calculi; Z88.5 Allergy status to narcotic agent; Z79.899 Other long term (current) drug therapy; Z79.82 Long term (current) use of aspirin; Z79.02 Long term (current) use of antithrombotics/antiplatelets; Z79.1 Long term (current) use of non-steroidal anti-inflammatories (NSAID)
CPT/HCPCS: 70470; 70491; 71260; 80047; 80048; 80076; 81001; 82150; 82550; 82553; 83605; 84145; 84484; 85025; 85610; 85730; 86140; 87040; 87486; 87581; 87633; 87798; 93005; 93041; 94760; 96374; 96375; 99285; J2405; J3010; Q9967

== ENCOUNTER → 2025-11-10 | Outpatient (RCR) | payer MEDICARE ==
[~2025-11-10] MED LIST changes: +SODI1TAB6
== END ==
LOC: M ONCR 10-21 07:50
PROVIDERS: ATTEND General Practice
DX: Z51.0 Encounter for antineoplastic radiation therapy (principal); C34.11 Malignant neoplasm of upper lobe, right bronchus or lung